=== PATIENT | male | born 1950 | race Caucasian/White ===

== ENCOUNTER → 2017-05-21 | Outpatient (CLI) | payer MEDICARE, BC ==
[2017-05-21 15:13] LABS: HCT 43.6 % (39.0-53.0); HGB 13.8 gm/dL (13.0-17.5); MCHC 31.6 g/dL (31.0-37.0); MCV 88.5 fL (80.0-100.0); Mean Platelet Volume 7.8; Platelet Count 166 k/uL (150-450); RBC 4.93 m/uL (4.30-5.90); RDW 13.6 % (11.5-15.5); WBC 6.5 k/uL (3.8-10.6)
[2017-05-21 15:32] LABS: Anion Gap 11 mmol/L; Blood Urea Nitrogen 30 mg/dL (9-20); Carbon Dioxide 29 mmol/L (22-30); Chloride 99 mmol/L (98-107); Potassium 3.9 mmol/L (3.5-5.1); Sodium 139 mmol/L (137-145)
== END | disposition home or self-care (01) ==
LOC: LABPAT 15:01
PROVIDERS: ATTEND Internal Medicine Cardiovascular Disease
DX: Z01.812 Encounter for preprocedural laboratory examination (principal); I25.10 Atherosclerotic heart disease of native coronary artery without angina pectoris
CPT/HCPCS: 36415; 80051; 82565; 84520; 85027

== ENCOUNTER 2017-05-26 06:11 | Day surgery (SDC) | payer MEDICARE, BC ==
[2017-05-22 13:16] VITALS: BMI 29.7
[2017-05-26] MEDS ORDERED: NITROGLYCERIN SL TABS 0.4 MG TAB SUBLINGUAL PRN ×2 (06:29→09:06)
[2017-05-26] MEDS ORDERED: ALPRAZolam 0.25 MG TAB PO PRN (06:29)
[2017-05-26] MEDS ORDERED: ASPIRIN 325 MG TAB PO STA (06:29)
[2017-05-26] MEDS ORDERED: SODIUM CHLORIDE 0.9% 1,000 ML in EMPTY BAG 1 BAG IV ONE (06:29)
[2017-05-26] MEDS ORDERED: ALPRAZolam 0.5 MG TAB PO PRN (06:29)
[2017-05-26] MEDS ORDERED: MIDAZOLAM 2 MG/2 ML VIAL IV ONE (07:40)
[2017-05-26] MEDS ORDERED: fentaNYL (PF) 50 MCG/ML 2 ML AMP IV ONE (07:40)
[2017-05-26] MEDS ORDERED: LIDOCAINE 2% INJ 20 MG/ML SQ ONE ×2 (07:42→08:54)
[2017-05-26] MEDS ORDERED: BIVALIRUDIN BOLUS 250 MG/50 ML IV ONE (08:09)
[2017-05-26] MEDS ORDERED: BIVALIRUDIN 250 MG in SODIUM CHLORIDE 0.9% 40 ML IV ONE (08:10)
[2017-05-26] MEDS: NITROGLYCERIN 1000MCG/10ML SYRINGE INTRACORON ONE ×2 (08:31→08:43)
[2017-05-26] MEDS ORDERED: CLOPIDOGREL 75 MG TAB PO ONE (08:54)
[2017-05-26] MEDS ORDERED: HYDROmorphone 2 MG/ML 1 ML SYRINGE IV ONE (08:54)
[2017-05-26] MEDS ORDERED: IOHEXOL 350 MG/ML 125ML BOTTLE INJ ONE (08:55)
[2017-05-26] MEDS ORDERED: RX INFO: IV CONTRAST WAS GIVEN 1 EACH MISC MISCELLANE PRN (09:06)
[2017-05-26] MEDS ORDERED: ATROPINE SULFATE 0.1 MG/ML 10ML SYRINGE IV PRN (09:06)
[2017-05-26] MEDS ORDERED: MAG HYDROX/AL HYDROX/SIMETH 30 ML CUP PO PRN (09:06)
[2017-05-26] MEDS ORDERED: ZOLPIDEM 5 MG TAB PO PRN (09:06)
--- NOTE | 2017-05-26 10:13 | CC ---
CARDIAC CATHETERIZATION REPORT INDICATION: Unstable angina. A 66-year-old gentleman with history of hypertension, dyslipidemia, who was advised to undergo cardiac catheterization for symptoms of unstable angina. PROCEDURE NOTE: After obtaining informed consent, left heart catheterization, coronary angiogram are performed via the right femoral artery using standard Chao catheters. The patient tolerated the procedure well without any obvious immediate complications. FINDINGS: 1. Hemodynamics left ventricular end-diastolic pressure is 8 to 10 mm. There is no significant gradient across the aortic valve. LEFT VENTRICULOGRAM: Left ventriculogram is not performed. ANGIOGRAPHIC DATA: 1. Left main coronary artery: Left main coronary artery is a normal-sized vessel and is free of stenosis. Divides into left anterior descending coronary artery and circumflex coronary arteries. Mid LAD shows a 80-90% focal area of stenosis that involves the diagonal branch also. 2. Circumflex coronary artery is a nondominant vessel and is free of significant stenosis. 3. Right coronary artery is a large dominant vessel that shows mild atherosclerotic plaque in its proximal and distal part. CONCLUSIONS: 80 to 90% focal area of stenosis involving the LAD. PLAN: Patient will undergo angioplasty with stent placement of LAD. MMODL / IJN: [id number] /
--- NOTE | 2017-05-26 10:40 | LTR ---
DATE OF SERVICE: 05/26/[address] Kamara: Thank you for the opportunity to participate in the care of Mr. Flip Cardoza. Please find enclosed my PTCA report for your records. I am pleased to report to you that he had an excellent angiographic result. He has really calcified arteries. He should be on dual antiplatelet therapy without interruption for at least 1 year. Risk factor modification issues were also discussed. His LDL cholesterol should be kept under 70 and I have given him 80 mg of Lipitor. Thank you for your referral. Please call for questions. Sincerely, PIA / KANWALN: [phone] /
--- NOTE | 2017-05-26 10:40 | CC ---
CARDIAC CATHETERIZATION REPORT DATE OF SERVICE: 05/26/2017. PROCEDURE: PTCA and stenting of complex calcified mid LAD lesion with a drug-eluting stent. PERFORMED BY: Dr. Josefa Cabello. SEDATION: Moderate conscious sedation time was 50 minutes with a combination of Versed, Benadryl and patient was monitored closely and oxygen saturation was also monitored. CLINICAL INFORMATION: Mr. Flip Cardoza is a 66-year-old gentleman a patient of Dr. Kamara who was seen by Dr. Colunga with symptoms strongly suggestive of angina. He has exertional chest pressure, walking up a flight of stairs. However, the stress test did not reveal any clear-cut ischemia. In view of his ongoing symptoms strongly suggestive of angina with high index of suspicion Dr. Colunga performed coronary angiography which revealed a mid LAD lesion of 70%, eccentric, heavily calcified before and at the lesion site as well. He was advised intervention that was performed in the same setting. The risks, benefits, options were explained to the patient prior to the procedure. He understood and wished to proceed. PROCEDURE NOTE: The existing 6-Israeli introducer in the right femoral artery was used to perform the procedure. I used a standard left Chao guide catheter to cannulate the left coronary artery. A BMW wire was used to cross the lesion. I pre-dilated the lesion with a 2.75 caliber 12 mm Trek balloon at 8 atmospheres. Following this, there was a flap noted. The flap was at and slightly proximal to the lesion. I then deployed instead of a 2.75, a 2.5 caliber 12 mm long Xience stent at 12 atmospheres. I noted that the flap still persisted slightly proximal to the stented segment and this was addressed with another 8 mm 2.75 caliber Xience stent that was telescoped into the previous stent. The patient had chest discomfort and precordial ST elevation. Following the 2 stents, there was an excellent angiographic result. There was no evidence of any complication. Patient tolerated procedure well without complication. He received Angiomax bolus and infusion and 600 mg of Plavix. The sheath was taken out and a Perclose device used to secure hemostasis and he was sent to the room in stable condition. Results were discussed with the patient and family. MMODL / IJN: [id number] /
[2017-05-26] MEDS ORDERED: TAMSULOSIN 0.4 MG CAP.ER.24H PO SCH (18:30)
[2017-05-26] MEDS ORDERED: LISINOPRIL-HCTZ 20-25 MG 1 EACH TAB PO SCH (18:30)
[2017-05-26] MEDS: SODIUM CHLORIDE 0.9% 1,000 ML IV SCH ×2 (18:37→20:58)
[2017-05-26] MEDS ORDERED: ATORVASTATIN 80 MG TAB PO SCH (21:00)
[2017-05-26] MEDS ORDERED: METOPROLOL TARTRATE 25 MG TAB PO SCH (21:00)
[2017-05-26 22:34] VITALS: RESP 16
[2017-05-27 04:24] VITALS: TEMP 96.8
[2017-05-27 06:11] LABS: Basophils % (A) 1 %; Eosinophils # (A) 0.3 k/uL (0-0.7); Eosinophils % (A) 5 %; HCT 42.2 % (39.0-53.0); HGB 13.5 gm/dL (13.0-17.5); Lymphocytes # (A) 1.2 k/uL (1.0-4.8); Lymphocytes % (A) 22 %; MCH 27.6 pg (25.0-35.0); MCV 86.3 fL (80.0-100.0); Mean Platelet Volume 7.3; Monocytes # (A) 0.3 k/uL (0-1.0); Monocytes % (A) 5 %; Neutrophils # (A) 3.5 k/uL (1.3-7.7); Neutrophils % (A) 66 %; Platelet Count 138 k/uL (150-450); RBC 4.89 m/uL (4.30-5.90); RDW 13.4 % (11.5-15.5); WBC 5.3 k/uL (3.8-10.6)
[2017-05-27 06:30] LABS: Anion Gap 6 mmol/L; Blood Urea Nitrogen 18 mg/dL (9-20); Calcium 9.6 mg/dL (8.4-10.2); Carbon Dioxide 34 mmol/L (22-30); Chloride 99 mmol/L (98-107); Glucose 99 mg/dL (74-99); Potassium 4.3 mmol/L (3.5-5.1); Sodium 139 mmol/L (137-145)
[2017-05-27 07:48] VITALS: PULSE 71
[2017-05-27 07:49] VITALS: BP 124/74
[2017-05-27] MEDS ORDERED: ASPIRIN 81 MG PO SCH (09:00)
[2017-05-27] MEDS ORDERED: ESCITALOPRAM 5 MG TAB PO SCH (09:00)
[2017-05-27] MEDS ORDERED: CHOLECALCIFEROL 1,000 UNIT TAB PO SCH (09:00)
[2017-05-27] MEDS ORDERED: METOPROLOL SUCCINATE (ER) 50 MG TAB.ER.24H PO SCH (09:00)
[2017-05-27] MEDS ORDERED: CLOPIDOGREL 75 MG TAB PO SCH (09:00)
[2017-05-27] MEDS ORDERED: NON-FORMULARY DRUG (Fish Oil/Dha/Epa [Fish Oil 1,200 Mg Fish Oil] 1 EACH) PO SCH (09:00)
[2017-05-27] MEDS ORDERED: MULTIVITAMINS, THERA 1 EACH TAB PO SCH (12:00)
--- NOTE | 2017-05-27 12:05 | PN ---
PROGRESS NOTE This gentleman underwent stenting of mid LAD yesterday. He sees Dr. Martinez in the office and also Dr. Kamara is his primary care physician. His EKG and labs are good. He is asymptomatic. His right groin is clean and dry with a good pulse. Vital signs are stable there is no JVD or carotid bruit. S1, S2 heard normally. Lungs are clear. Abdomen and lower extremities exam unchanged. Plan is to increase activity, discharge him and he will see Dr. Martinez this Friday. Discharge instructions regarding activity, diet, medications, and importance of dual antiplatelet therapy was discussed with the patient. He will be discharged today. MMODL / IJN: [id number] /
== END 2017-05-27 10:39 | disposition home or self-care (01) ==
LOC: CATHCVL 06:11 → 6SEL 08:50 → CATHCVL 05-27 10:39
PROVIDERS: ATTEND Internal Medicine Cardiovascular Disease
DX: I25.110 Atherosclerotic heart disease of native coronary artery with unstable angina pectoris (principal); I25.84 Coronary atherosclerosis due to calcified coronary lesion; R00.1 Bradycardia, unspecified; E78.5 Hyperlipidemia, unspecified; I10 Essential (primary) hypertension; I47.2 Ventricular tachycardia; Z82.49 Family history of ischemic heart disease and other diseases of the circulatory system; Z79.82 Long term (current) use of aspirin; Z79.899 Other long term (current) drug therapy; Z87.891 Personal history of nicotine dependence
CPT/HCPCS: 80048; 85025; 93458

== ENCOUNTER 2017-10-11 13:11 | Emergency (ER) | payer MEDICARE, BC ==
[2017-10-11 13:22] VITALS: BP 117/72; PULSE 72; RESP 18; TEMP 98.5
[2017-10-11] MEDS ORDERED: DIPH,PERTUS(ACELL)TETVAC-LF 0.5 ML VIAL IM ONE (13:31)
[2017-10-11] MEDS ORDERED: AMOXIC-POT CLAV 875-125MG 1 EACH TAB PO STA (13:31)
--- NOTE | 2017-10-11 13:35 | ED ---
Animal Bite HPI - General Chief Complaint: Animal Bite Stated Complaint: Animal Bite Time Seen by Provider: 10/11/17 13:20 Source: patient, RN notes reviewed Mode of arrival: ambulatory Limitations: no limitations - History of Present Illness Initial Comments: This is a 67-year-old male presents emergency Department chief complaint of right arm pain. Patient states that he was bit by his neighbor's friend's dog on Friday. Patient noticed some swelling in the last 24 hours and slight warmth. He's had slight increase in pain also. Patient states she's been washing the wounds with peroxide, soap water and putting Neosporin on. He states his 2 small puncture wounds. Patient is unsure when his last tetanus was. The dog was up-to-date on his vaccinations. Patient denies any paresthesias of his right arm he states it is tender with palpation over that region. Patient denies fever, chills, night sweats - Related Data Home Medications Medication Instructions Recorded Confirmed Cholecalciferol [Vitamin D3] 2,000 unit PO DAILY 05/10/15 10/11/17 Lisinopril-Hctz 20-25 mg 1 tab PO PC-SUPPER 05/10/15 10/11/17 [Zestoretic 20-25] Multivitamins, Thera [Multivitamin 1 tab PO DAILY 05/10/15 10/11/17 (formulary)] Tamsulosin [Flomax] 0.4 mg PO PC-SUPPER 05/10/15 10/11/17 Escitalopram [Lexapro] 5 mg PO DAILY 05/22/17 10/11/17 Famotidine 40 mg PO DAILY 05/22/17 10/11/17 Fish Oil/Dha/Epa [Fish Oil 1,200 1 each PO DAILY 05/22/17 10/11/17 mg Fish Oil] Metoprolol Succinate (ER) [Toprol 50 mg PO DAILY 05/22/17 10/11/17 XL] Previous Rx's Medication Instructions Recorded Aspirin 81 mg PO DAILY #30 chew 05/27/17 Atorvastatin [Lipitor] 80 mg PO HS #30 tab 05/27/17 Clopidogrel [Plavix] 75 mg PO DAILY #30 tab 05/27/17 Nitroglycerin Sl Tabs [Nitrostat] 0.4 mg SUBLINGUAL Q5M PRN #25 tab 05/27/17 Amoxicillin/Potassium Clav 1 tab PO Q12HR #20 tab 10/11/17 [Augmentin 875-125 Tablet] Allergies Allergy/AdvReac Type Severity Reaction Status Date / Time No Known Allergies Allergy Verified 10/11/17 13:22 Review of Systems ROS Statement: Those systems with pertinent positive or pertinent negative responses have been documented in the HPI. ROS Other: All systems not noted in ROS Statement are negative. Past Medical History Past Medical History: GERD/Reflux, Hyperlipidemia, Hypertension, Osteoarthritis (OA), Prostate Disorder Additional Past Medical History / Comment(s): hx migraine, heart murmer, hx ulcer, torn rotator cuff left shoulder, hx of cocaine and mj use per old records History of Any Multi-Drug Resistant Organisms: None Reported Past Surgical History: Heart Catheterization With Stent, Hernia Repair, Joint Replacement Additional Past Surgical History / Comment(s): reverse left shoulder replacement , left shoulder surgery (total 3), arthroscopy left knee, rt ankle ORIF, TOTAL LT KNEE REPLACEMENT Past Anesthesia/Blood Transfusion Reactions: Motion Sickness Additional Past Anesthesia/Blood Transfusion Reaction / Comment(s): CLAUSTERPHOBIC Past Psychological History: Anxiety, Depression Smoking Status: Former smoker Past Alcohol Use History: None Reported Past Drug Use History: None Reported - Past Family History Mother Family Medical History: Dementia Father Family Medical History: Hyperlipidemia, Myocardial Infarction ([place]) General Exam Limitations: no limitations General appearance: alert, in no apparent distress Head exam: Present: atraumatic, normocephalic, normal inspection Respiratory exam: Present: normal lung sounds bilaterally. Absent: respiratory distress, wheezes, rales, rhonchi, stridor Cardiovascular Exam: Present: regular rate, normal rhythm, normal heart sounds. Absent: systolic murmur, diastolic murmur, rubs, gallop, clicks Extremities exam: Present: other (Right forearm there are 2 healing puncture wounds noted there is mild erythema and mild warmth to the right forearm there is moderate tenderness to palpation in noted epitrochlear nodes there is no pain in the patient's right bicep region or right axilla region radial pulses equal bilaterally patient has full strength and full range of motion) Course Vital Signs 10/11/17 13:19 Temperature 98.5 F Pulse Rate 72 Respiratory 18 Rate Blood Pressure 117/72 O2 Sat by Pulse 97 Oximetry Medical Decision Making - Medical Decision Making 67-year-old male presented for dog bite. Patient's tetanus was updated, he was started on Augmentin this time. He is advised to recheck on Friday with his primary care physician and he is to return for any worsening symptoms. Disposition Clinical Impression: Dog bite of right arm, Cellulitis of right arm Disposition: HOME SELF-CARE Condition: Stable Instructions: Animal Bite (ED) Additional Instructions: Please return to the Emergency Department if symptoms worsen or any other concerns. Prescriptions: Amoxicillin/Potassium Clav [Augmentin 875-125 Tablet] 1 tab PO Q12HR #20 tab Is patient prescribed a controlled substance at d/c from ED?: No Referrals: Paulino Kamara MD [Primary Care Provider] - 1-2 days Time of Disposition: 13:35
== END 2017-10-11 14:10 | disposition home or self-care (01) ==
LOC: EC 13:11
DX: S51.851A Open bite of right forearm, initial encounter (principal); L03.113 Cellulitis of right upper limb; K21.9 Gastro-esophageal reflux disease without esophagitis; I10 Essential (primary) hypertension; N42.9 Disorder of prostate, unspecified; F32.9 Major depressive disorder, single episode, unspecified; F41.9 Anxiety disorder, unspecified; Z23 Encounter for immunization; Z87.891 Personal history of nicotine dependence; Z79.899 Other long term (current) drug therapy; Z95.1 Presence of aortocoronary bypass graft; Z96.652 Presence of left artificial knee joint; Z96.612 Presence of left artificial shoulder joint; W54.0XXA Bitten by dog, initial encounter
CPT/HCPCS: 90471; 90715; 99283

== ENCOUNTER 2018-02-20 12:51 | Emergency (ER) | payer MEDICARE, BC ==
[2018-02-20 13:01] VITALS: TEMP 97.9
--- NOTE | 2018-02-20 13:26 | ED ---
General Adult HPI - General Chief complaint: Wound/Laceration Stated complaint: head/facial injury Time Seen by Provider: 02/20/18 13:13 Source: patient, RN notes reviewed Limitations: no limitations - History of Present Illness Initial comments: Patient is a 67-year-old male who presents the emergency department with complaints of right cheek bruising and laceration after a trailer hitch hit his face about an hour and half ago. He reports he is up-to-date on his tetanus vaccination. He takes Plavix and aspirin. Admits to headache. He reports that he has chronic left-sided neck pain, but no new neck pain and no midline neck pain. Patient denies any recent fever, chills, shortness of breath, chest pain, back pain, abdominal pain, nausea or vomiting, visual changes, or any other complaints. - Related Data Home Medications Medication Instructions Recorded Confirmed Cholecalciferol [Vitamin D3] 2,000 unit PO DAILY 05/10/15 02/20/18 Lisinopril-Hctz 20-25 mg 1 tab PO PC-SUPPER 05/10/15 02/20/18 [Zestoretic 20-25] Multivitamins, Thera [Multivitamin 1 tab PO DAILY 05/10/15 02/20/18 (formulary)] Tamsulosin [Flomax] 0.4 mg PO PC-SUPPER 05/10/15 02/20/18 Escitalopram [Lexapro] 5 mg PO DAILY 05/22/17 02/20/18 Famotidine 40 mg PO DAILY 05/22/17 02/20/18 Fish Oil/Dha/Epa [Fish Oil 1,200 1 each PO DAILY 05/22/17 02/20/18 mg Fish Oil] Metoprolol Succinate (ER) [Toprol 50 mg PO DAILY 05/22/17 02/20/18 XL] Naproxen Sodium [Aleve] 440 mg PO DAILY 02/20/18 02/20/18 Previous Rx's Medication Instructions Recorded Aspirin 81 mg PO DAILY #30 chew 05/27/17 Atorvastatin [Lipitor] 80 mg PO HS #30 tab 05/27/17 Clopidogrel [Plavix] 75 mg PO DAILY #30 tab 05/27/17 Nitroglycerin Sl Tabs [Nitrostat] 0.4 mg SUBLINGUAL Q5M PRN #25 tab 05/27/17 Amoxicillin/Potassium Clav 1 each PO Q12HR #20 tab 02/20/18 [Augmentin 875-125 Tablet] Hydrocodone/Acetaminophen [[place] 1 each PO Q6HR PRN #12 tab 02/20/18 5-325] Allergies Allergy/AdvReac Type Severity Reaction Status Date / Time No Known Allergies Allergy Verified 02/20/18 15:03 Review of Systems ROS Statement: Those systems with pertinent positive or pertinent negative responses have been documented in the HPI. ROS Other: All systems not noted in ROS Statement are negative. Past Medical History Past Medical History: GERD/Reflux, Hyperlipidemia, Hypertension, Osteoarthritis (OA), Prostate Disorder Additional Past Medical History / Comment(s): hx migraine, heart murmer, hx ulcer, torn rotator cuff left shoulder, hx of cocaine and mj use per old records History of Any Multi-Drug Resistant Organisms: None Reported Past Surgical History: Heart Catheterization With Stent, Hernia Repair, Joint Replacement Additional Past Surgical History / Comment(s): reverse left shoulder replacement , left shoulder surgery (total 3), arthroscopy left knee, rt ankle ORIF, TOTAL LT KNEE REPLACEMENT Past Anesthesia/Blood Transfusion Reactions: Motion Sickness Additional Past Anesthesia/Blood Transfusion Reaction / Comment(s): CLAUSTERPHOBIC Past Psychological History: Anxiety, Depression Smoking Status: Former smoker Past Alcohol Use History: None Reported Past Drug Use History: None Reported - Past Family History Mother Family Medical History: Dementia Father Family Medical History: Hyperlipidemia, Myocardial Infarction ([place]) General Exam Limitations: no limitations General appearance: alert, in no apparent distress Head exam: Present: other (2 cm laceration to right cheek with bruising and edema.) Eye exam: Present: PERRL, EOMI Pupils: Present: normal accommodation ENT exam: Present: normal exam, normal oropharynx, TM's normal bilaterally, normal external ear exam, other (No blood seen during internal nasal exam.) Neck exam: Present: normal inspection, full ROM, other (No tenderness to palpation.) Respiratory exam: Present: normal lung sounds bilaterally Cardiovascular Exam: Present: regular rate, normal rhythm Extremities exam: Present: other (Moving all extremities.) Back exam: Present: other (No tenderness to palpation.) Neurological exam: Present: alert, oriented X3, CN II-XII intact Psychiatric exam: Present: normal affect, normal mood Course Vital Signs 02/20/18 02/20/18 02/20/18 12:58 14:58 17:20 Temperature 97.9 F Pulse Rate 72 64 65 Respiratory 20 16 18 Rate Blood Pressure 151/84 173/78 161/76 O2 Sat by Pulse 99 99 98 Oximetry Medical Decision Making - Medical Decision Making Extraocular movements intact. Ocular pressure was WNL at 19 right and 20 left. Fluorescent stain eye exam negative for abrasion to left eye. Left eye (nasal side) was also negative for abrasion; temporal side with subconjunctival hemorrhage. Visual acuity of right eye and left eye separately was 20/40; together was 20/ 30. He reports that he is supposed to wear glasses but does not have them with him. Brain CT revealed no acute intracranial process. Right tripod fracture with a orbital floor fracture. Face CT revealed complex right orbital fracture with mass affect upon the lateral rectus muscle and foci of extracoronal air, posttraumatic. Angulated and comminuted fractures of the anterior and lateral green of the right maxillary sinus with internal hemorrhage. Angulated non-comminuted fracture of the right zygomatic arch and of the nasal bones. Hematoma, subcutaneous emphysema, and extensive soft tissue swelling in the right supraorbital, periorbital, and infraorbital soft tissues. Globes maintain a normal rounded morphology and lenses appear in place. Wound was cleaned and Steri-Strips were placed. EKG was normal. Case discussed in detail with attending physician Dr. Campbell. - Lab Data Result diagrams: 02/20/18 13:49 Lab Results 02/20/18 02/20/18 Range/Units 13:49 13:49 Plt Count 134 L (150-450) k/uL PT 10.9 (9.0-12.0) sec INR 1.1 (<1.2) APTT 23.3 (22.0-30.0) sec Disposition Clinical Impression: Facial bone fracture Disposition: HOME SELF-CARE Condition: Good Instructions: Facial Fracture (ED) Additional Instructions: Follow up with PCP in 2 days. Follow up with plastic surgery in 2 days. Stop taking Plavix for now and follow up with your skate boarder in 2 days to decide when to restart Plavix. Do not blow your nose. Do not drive while taking [place]. Return to emergency department if symptoms worsen or any other concerns. Prescriptions: Amoxicillin/Potassium Clav [Augmentin 875-125 Tablet] 1 each PO Q12HR #20 tab Hydrocodone/Acetaminophen [[place] 5-325] 1 each PO Q6HR PRN #12 tab PRN Reason: Pain Is patient prescribed a controlled substance at d/c from ED?: Yes When asked, does pt state using other controlled substances?: No If prescribed controlled substance>3 days was MAPS reviewed?: Prescribed <3 Days If opioid is for acute pain is fill amount 7 days or less?: Yes If Rx opioid, was Start Talking consent form obtained?: Yes Referrals: Paulino Kamara MD [Primary Care Provider] - 1-2 days Kong South MD [STAFF PHYSICIAN] - 1-2 days
[2018-02-20 14:01] LABS: Mean Platelet Volume 6.9; Platelet Count 134 k/uL (150-450)
[2018-02-20 14:14] LABS: INR 1.1 (<1.2); Partial Thromboplastin Time 23.3 sec (22.0-30.0); Prothrombin Time 10.9 sec (9.0-12.0)
--- NOTE | 2018-02-20 14:25 | CT ---
EXAMINATION TYPE: CT brain wo con DATE OF EXAM: 02/20/2018 COMPARISON: INDICATION: Right orbital injury with swelling and laceration. DLP: 1439.6 mGycm, Automated exposure control for dose reduction was used. CONTRAST: None CT of the brain is performed utilizing 3 mm thick sections through the posterior fossa and 3 mm thick sections through the remaining calvarium. Study is performed within 24 hours of arrival to the hosp ital. No abnormal hyperdensity is present to suggest an acute intracranial hemorrhage. No mass lesion is evident. No acute infarcts are evident. Ventricles and sulci are appropriate for the patient age. There is opacification of the right maxillary sinus. Hemorrhage is likely present. There is soft tissue swelling over the right orbit and right cheek. There are 2 fractures of the zygo matic arch. Zygomatic arch is depressed. There is a fracture of the posterior lateral right maxillary wall. This fracture of the anterior lateral maxillary wall. Greater wings of sphenoid is fractured. Findings are compatible with a tripod fracture. Orbital floor fracture is also likely present lateral ly. IMPRESSIONS: 1. No acute intracranial process. 2. Right tripod fracture with a orbital floor fracture.
--- NOTE | 2018-02-20 14:32 | CT ---
EXAMINATION TYPE: CT facial bones wo con DATE OF EXAM: 02/20/2018 HISTORY: Right orbital injury with swelling and laceration. CT DLP: 1439.6 mGycm. Automated Exposure Control for Dose Reduction was Utilized. TECHNIQUE: CT scan of the head is performed without contrast. COMPARISON: None. FINDINGS: There is a complex fracture of the right orbit involving the lateral wall with angulation a nd 7 mm of foreshortening. The distal fracture fragment extends into the extraconal space with focus of adjacent air. There is mass effect upon the lateral rectus muscle. Foci of air track within the ex traconal space in the right orbit. Additionally there is an inferior orbital comminuted fracture seen anterolaterally without herniation of extraocular muscles. There is also a lateral right maxillary s inus and anterior right maxillary sinus fracture that are both angulated and comminuted. Angulated no ncomminuted right zygomatic arch fracture is also seen. There is complete opacification of the right maxillary sinus due to hemorrhage with high density seen on soft tissue windows. Mild mucosal thickening is seen along the lateral wall the left maxillary sinus. Nondisplaced fractur es of the nasal bones are seen. Maxillary spine and nasal septum appear intact. Selene bullosa is inc identally noted bilaterally. Minimal ethmoidal mucosal thickening is present. Sphenoid and frontal si nuses as well as the mastoid air cells are well aerated. Mild atherosclerosis is seen of the intracra nial vasculature. There is a large degree of right supraorbital, infraorbital, and periorbital soft tissue swelling ext ending over the right maxilla with subcutaneous foci of emphysema also seen and high density periorbi jluis ill-defined hematoma. Globes are rounded and lenses appear in place and symmetric in the anterior chambers. Degenerative changes of the upper cervical spine are noted. IMPRESSION: 1. Complex right orbital fracture with mass effect upon the lateral rectus muscle and foci of or extr aconal air, posttraumatic. 2. Angulated and comminuted fractures of the anterior and lateral green of the right maxillary sinus with internal complete opacification and areas of high density from internal hemorrhage. 3. Angulated noncomminuted fracture of the right zygomatic arch and of the nasal bones. 4. Hematoma, subcutaneous emphysema, and extensive soft tissue swelling in the right supraorbital, pe riorbital, and infraorbital soft tissues. Globes maintain a normal rounded morphology and lenses appe ar in place.
[2018-02-20] MEDS ORDERED: MORPHINE SULFATE 4 MG/ML SYRINGE IV STA (14:46)
[2018-02-20] MEDS ORDERED: PROPARACAINE 0.5% OPHTH DROPS 15 ML BTL BOTH EYES STA (14:59)
[2018-02-20 17:21] VITALS: BP 161/76; PULSE 65; RESP 18
== END 2018-02-20 18:20 | disposition home or self-care (01) ==
LOC: EC 12:51
DX: S02.31XA Fracture of orbital floor, right side, initial encounter for closed fracture (principal); S02.40CA Maxillary fracture, right side, initial encounter for closed fracture; S02.40EA Zygomatic fracture, right side, initial encounter for closed fracture; S02.2XXA Fracture of nasal bones, initial encounter for closed fracture; T79.7XXA Traumatic subcutaneous emphysema, initial encounter; I10 Essential (primary) hypertension; K21.9 Gastro-esophageal reflux disease without esophagitis; M19.90 Unspecified osteoarthritis, unspecified site; N42.9 Disorder of prostate, unspecified; F32.9 Major depressive disorder, single episode, unspecified; F41.9 Anxiety disorder, unspecified; Z87.891 Personal history of nicotine dependence; Z79.1 Long term (current) use of non-steroidal anti-inflammatories (NSAID); Z79.899 Other long term (current) drug therapy; Z87.19 Personal history of other diseases of the digestive system; Z86.79 Personal history of other diseases of the circulatory system; Z95.818 Presence of other cardiac implants and grafts; Z96.612 Presence of left artificial shoulder joint; Z96.652 Presence of left artificial knee joint; W22.8XXA Striking against or struck by other objects, initial encounter; Y92.009 Unspecified place in unspecified non-institutional (private) residence as the place of occurrence of the external cause
CPT/HCPCS: 36415; 93005; 85049; 85610; 85730; 70486; 70450; 99284; 96374; J2270

== ENCOUNTER → 2018-06-30 | Outpatient (CLI) | payer MEDICARE, BC ==
--- NOTE | 2018-06-30 08:31 | US ---
EXAMINATION TYPE: US duplex aorta DATE OF EXAM: 06/30/2018 COMPARISON: NONE CLINICAL HISTORY: Z13.6 screening for AAA. EXAM MEASUREMENTS: Abdominal Aorta: Proximal: 2.7 x 2.7 cm Mid: 2.0 x 2.3 cm Distal: 1.9 x 2.0 cm Bifurcation: rt, 1.3 x 1.0 cm lt, 1.3 x 1.2 cm Calcified aorta. IMPRESSION: 1. Atherosclerotic changes with aortic ectasia but no diagnostic evidence of aneurysm (3 cm a greater ).
== END | disposition home or self-care (01) ==
LOC: RADUSWWP 07:58
PROVIDERS: ATTEND Family Medicine
DX: I77.811 Abdominal aortic ectasia (principal)
CPT/HCPCS: 93979

== ENCOUNTER → 2018-07-29 | Day surgery (SDC) | payer MEDICARE, BC ==
[2018-07-27 12:11] VITALS: BMI 28.3
[~2018-07-29] MED LIST: LACTATED RINGERS 1,000 ML IV SCH; LIDOCAINE 1% 20 ML VIAL (10MG/ML) FOR IV START INTRADERMA ONE; LIDOCAINE 1% INJ 10MG/ML (20 ML MDV) ONE; PROPOFOL 10 MG/ML 20 ML VIAL IV ONE
[2018-07-29 12:11] VITALS: RESP 16; TEMP 97.8
--- NOTE | 2018-07-29 13:07 | P.PCN ---
Date of Procedure: 07/29/18 Procedure(s) Performed: Brief history: Patient is a pleasant 68-year-old white male, scheduled for an elective upper endoscopy as well as colonoscopy as a part of evaluation of GERD and prior history of colon polyps. He remains on Pepcid 40 mg twice daily for reflux symptoms. Procedure performed: Esophagogastroduodenoscopy with biopsy Colonoscopy Preoperative diagnosis: GERD History of colon polyps Anesthesia: MAC Procedure: After informed consent was obtained from the patient was brought into the endoscopy unit and IV sedation was administered by anesthesia under continuous monitoring. Initially upper endoscopy was done. The Olympus GF 160 video endoscope was inserted inserted into the mouth and esophagus intubated without any difficulty and was gradually advanced into the stomach and duodenum and carefully examined. The bulb and second part of the duodenum appeared normal. The scope was then withdrawn into the stomach adequately insufflated with air and upon careful examination the antrum and body had diffuse gastritis and biopsies were done from these areas. The, cardia and fundus appeared normal. The scope was then withdrawn into the esophagus. The GE junction was located at 41 cm to the incisors. It appeared regular with no erythema erosions or ulcerations. Rest of the esophagus appeared normal. Patient tolerated the procedure well. At this time the patient continued to remain sedation. Initial digital rectal examination was normal. Olympus CF 160 video colonoscope was then inserted into the rectum and gradually advanced to the cecum without any difficulty. Careful examination was performed as the scope was gradually being withdrawn. The prep was excellent. The cecum, ascending colon, transverse colon, descending colon, sigmoid colon and rectum appeared normal. Retroflexion was performed in the rectum and no lesions were noted. Scattered sigmoidal diverticulosis. Patient tolerated the procedure well. Impression: 1. Upper endoscopy revealed diffuse gastritis involving the antrum and body the stomach but no evidence of esophagitis 2. Colonoscopy showed scattered sigmoid diverticulosis but no evidence of colorectal neoplasia. Recommendations: Findings of this examination were discussed with the patient as well as his family. He was advised to follow with the biopsy results. He can have a repeat screening colonoscopy in 5 years because of the prior history of colon polyps
[2018-07-29 13:38] VITALS: BP 138/83; PULSE 77
== END | disposition home or self-care (01) ==
LOC: ORWHC2ENDO 11:11
PROVIDERS: ATTEND Internal Medicine Gastroenterology
DX: K21.9 Gastro-esophageal reflux disease without esophagitis (principal); Z86.010 Personal history of colon polyps; K57.30 Diverticulosis of large intestine without perforation or abscess without bleeding; K29.70 Gastritis, unspecified, without bleeding; Z79.1 Long term (current) use of non-steroidal anti-inflammatories (NSAID); Z79.899 Other long term (current) drug therapy; I10 Essential (primary) hypertension; K29.50 Unspecified chronic gastritis without bleeding; K31.9 Disease of stomach and duodenum, unspecified
CPT/HCPCS: 88305; 45378; 43239; J2001; J2704

== ENCOUNTER → 2018-12-25 | Outpatient (CLI) | payer MEDICARE ==
[2018-12-25 15:09] LABS: HCT 41.2 % (39.0-53.0); HGB 14.1 gm/dL (13.0-17.5); MCH 28.6 pg (25.0-35.0); MCHC 34.3 g/dL (31.0-37.0); MCV 83.4 fL (80.0-100.0); Mean Platelet Volume 6.2; Platelet Count 154 k/uL (150-450); RBC 4.94 m/uL (4.30-5.90); RDW 13.4 % (11.5-15.5)
[2018-12-25 15:18] LABS: African American GFR (CKD) >90 (>60 ml/min/1.73 sqM); Anion Gap 7 mmol/L; Blood Urea Nitrogen 25 mg/dL (9-20); Carbon Dioxide 30 mmol/L (22-30); Chloride 102 mmol/L (98-107); Glucose 83 mg/dL (74-99); Potassium 4.2 mmol/L (3.5-5.1); Sodium 139 mmol/L (137-145)
== END | disposition home or self-care (01) ==
LOC: LABPAT 14:26
PROVIDERS: ATTEND Internal Medicine Cardiovascular Disease
DX: Z01.812 Encounter for preprocedural laboratory examination (principal); R07.9 Chest pain, unspecified; I25.10 Atherosclerotic heart disease of native coronary artery without angina pectoris
CPT/HCPCS: 80051; 82565; 82947; 84520; 85027

== ENCOUNTER 2019-01-07 06:29 | Day surgery (SDC) | payer MEDICARE ==
[2019-01-04 13:17] VITALS: BMI 29.0
[~2019-01-07 06:29] MED LIST changes: +ALPRAZolam 0.25 MG TAB PO PRN; +ALPRAZolam 0.5 MG TAB PO PRN; +ASPIRIN 325 MG TAB PO STA; +ATORVASTATIN 80 MG TAB PO STA; -LACTATED RINGERS 1,000 ML IV SCH; -LIDOCAINE 1% 20 ML VIAL (10MG/ML) FOR IV START INTRADERMA ONE; -LIDOCAINE 1% INJ 10MG/ML (20 ML MDV) ONE; +NITROGLYCERIN SL TABS 0.4 MG TAB SUBLINGUAL PRN; -PROPOFOL 10 MG/ML 20 ML VIAL IV ONE; +SODIUM CHLORIDE 0.9% 1,000 ML in EMPTY BAG 1 BAG IV ONE
[2019-01-07 07:08] VITALS: RESP 16; TEMP 97.8
[2019-01-07] MEDS ORDERED: LIDOCAINE 1% INJ 10MG/ML (20 ML MDV) ONE (07:24)
[2019-01-07] MEDS ORDERED: fentaNYL (PF) 50 MCG/ML 2 ML AMP ONE (07:24)
[2019-01-07] MEDS ORDERED: IV FLUID CONTINUATION 1,000 ML IV ONE (07:36)
[2019-01-07] MEDS: fentaNYL (PF) 50 MCG/ML 2 ML AMP IV ONE ×2 (07:49→07:57)
[2019-01-07] MEDS: MIDAZOLAM PF (FBP) 2 MG/2 ML VIAL IV ONE ×2 (07:49→07:55)
[2019-01-07] MEDS ORDERED: LIDOCAINE 1% INJ 10MG/ML (20 ML MDV) SQ ONE (07:51)
[2019-01-07] MEDS ORDERED: IOPAMIDOL-370 125ML BTL INJ ONE (08:04)
[2019-01-07] MEDS ORDERED: RX INFO: IV CONTRAST WAS GIVEN 1 EACH MISC MISCELLANE PRN (08:18)
[2019-01-07] MEDS ORDERED: SODIUM CHLORIDE 0.9% 1,000 ML IV SCH (08:30)
--- NOTE | 2019-01-07 08:50 | CC ---
CARDIAC CATHETERIZATION REPORT INDICATION: Exertional chest tightness in a patient with known CAD, status post prior angioplasty of LAD. PROCEDURE NOTE: After obtaining informed consent, left heart catheterization and coronary angiogram are performed via the right femoral artery using standard Chao catheters. Patient tolerated the procedure well without any obvious immediate complications. A femoral angiogram was performed and Angio-Seal was deployed for hemostasis. Patient received moderate conscious sedation and total sedation time was 14 minutes. FINDINGS: 1. HEMODYNAMICS: Left ventricular end-diastolic pressure is 8 mm. There is no significant gradient across the aortic valve. 2. LEFT VENTRICULOGRAM: Left ventriculogram is not performed. 3. ANGIOGRAPHIC DATA: Left Main Coronary Artery: Left main coronary artery is a normal-sized vessel and is free of stenosis. Divides into left anterior descending coronary artery and circumflex coronary artery. Circumflex coronary artery is a nondominant vessel that gives off a large caliber OM branch and continues as a small caliber AV groove circumflex that shows diffuse disease distally. This remains unchanged compared to a cardiac catheterization done in 2018. The proximal LAD was previously stented. The stent appears patent. The ostial portion of the diagonal branch shows stenosis and it is right at the distal end of the stent. This was noted on a prior cardiac cath. Right coronary artery is a large dominant vessel that shows mild diffuse disease in its midportion without any focal significant stenotic lesion. CONCLUSIONS: Patent stent within the proximal left anterior descending artery. Mild nonobstructive coronary artery disease involving the right coronary artery. PLAN: I reviewed angiographic data with the patient and told him that his management is going to be with continued medical therapy. The patient will follow up with Dr. Martinez in a week's time. MMODL / IJN: [id number] /
--- NOTE | 2019-01-07 08:50 | LTR ---
January 07, 2019 Re: Flip Cardoza Dear Paulino: I performed cardiac catheterization on Flip Cardoza. A detailed catheterization note is enclosed for your records. In brief, his angiogram revealed a patent stent within the LAD and he does not require any further catheter based revascularization at this time. Thank you for giving me the privilege to participate in the care of this pleasant gentleman. Sincerely, MD PIA Cerda / ARUNA: [id number] /
[2019-01-07 13:23] VITALS: BP 134/67; PULSE 65
== END 2019-01-07 13:23 | disposition home or self-care (01) ==
LOC: CATHCVL 06:29
PROVIDERS: ATTEND Internal Medicine Cardiovascular Disease
DX: I25.110 Atherosclerotic heart disease of native coronary artery with unstable angina pectoris (principal); I49.5 Sick sinus syndrome; I47.1 Supraventricular tachycardia; I10 Essential (primary) hypertension; E78.5 Hyperlipidemia, unspecified; Z82.49 Family history of ischemic heart disease and other diseases of the circulatory system; Z72.0 Tobacco use; Z79.82 Long term (current) use of aspirin; Z79.899 Other long term (current) drug therapy; Z95.5 Presence of coronary angioplasty implant and graft
CPT/HCPCS: 93458; C1760; C1894; C1769; J2001; J3010; Q9967; J2250

== ENCOUNTER → 2019-05-28 | Outpatient (CLI) | payer MEDICARE ==
--- NOTE | 2019-05-28 09:41 | FL ---
EXAMINATION TYPE: FL barium swallow DATE OF EXAM: 05/28/2019 CLINICAL HISTORY: Difficulty swallowing, chest pain, and gastroesophageal reflux TECHNIQUE: A double contrast esophagram is performed utilizing air and barium. A total of 1.11 edilberto isamar of fluoroscopic time was utilized during procedure. 41 fluoroscopic images were saved during the examination. COMPARISON: None FINDINGS: The esophagus shows normal emptying into the stomach. There is abnormal motility with few t ertiary contractions however there are also esophageal spasms some of which have a nutcracker appeara nce. There is a small sliding-type hiatal hernia not seen on the upright images but present on the s upine images. No evidence of stricture noted. No significant gastroesophageal reflux was seen during real time performance of this study. IMPRESSION: 1. Small sliding-type hiatal hernia. 2. 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
== END | disposition home or self-care (01) ==
LOC: RADUSWWP 08:32
PROVIDERS: ATTEND Family Medicine
DX: K44.9 Diaphragmatic hernia without obstruction or gangrene (principal); K22.4 Dyskinesia of esophagus
CPT/HCPCS: 74220

== ENCOUNTER 2019-11-27 07:24 | Inpatient (IN) | payer MEDICARE ==
[2019-11-27] MEDS ORDERED: ASPIRIN 81 MG PO STA (07:27)
[2019-11-27] MEDS ORDERED: DILTIAZEM DRIP BOLUS FROM BAG 1 MG SOLN IV ONE (07:33)
[2019-11-27] MEDS ORDERED: SODIUM CHLORIDE 0.9% 500 ML 500 ML IV STA (07:33)
--- NOTE | 2019-11-27 07:38 | ED ---
Chest Pain HPI - General Stated Complaint: chest pain Time Seen by Provider: 11/27/19 07:27 Source: patient, RN notes reviewed Mode of arrival: wheelchair Limitations: no limitations - History of Present Illness Initial Comments: This is a 69-year-old male with a history of heart disease and stents 2 who states he had the onset about 25 minutes prior to arrival of midsternal chest pain 10/10 severity he describes it as sharp dull and achy but did feel nauseated with it he came in by private vehicle. He took 81 mg of aspirin. He took 2 nitroglycerin. He states the pain is about 8/10 severity. He did have a recent cardiac cath this past June which did show patency of his stents. He does have some exertional dyspnea at this time denies any overt palpitations fevers chills or other symptoms he does feel somewhat sweaty MD Complaint: chest pain - Related Data Home Medications Medication Instructions Recorded Confirmed Cholecalciferol [Vitamin D3 (25 2,000 unit PO DAILY 05/10/15 01/07/19 Mcg = 1000 Iu)] Multivitamins, Thera [Multivitamin 1 tab PO DAILY 05/10/15 01/07/19 (formulary)] Tamsulosin [Flomax] 0.4 mg PO HS 05/10/15 01/07/19 Famotidine 40 mg PO DAILY 05/22/17 01/07/19 Fish Oil/Dha/Epa [Fish Oil 1,200 1 each PO DAILY 05/22/17 01/07/19 mg Fish Oil] Naproxen Sodium [Aleve] 440 mg PO DAILY 02/20/18 01/07/19 Escitalopram [Lexapro] 10 mg PO DAILY 07/27/18 01/07/19 lisinopriL [Zestril] 20 mg PO HS 07/27/18 01/07/19 Metoprolol Tartrate [Lopressor] 25 mg PO DAILY 01/04/19 01/07/19 Previous Rx's Medication Instructions Recorded Aspirin 81 mg PO DAILY #30 chew 05/27/17 Atorvastatin [Lipitor] 80 mg PO HS #30 tab 05/27/17 Nitroglycerin Sl Tabs [Nitrostat] 0.4 mg SUBLINGUAL Q5M PRN #25 tab 05/27/17 Allergies Allergy/AdvReac Type Severity Reaction Status Date / Time No Known Allergies Allergy Verified 11/27/19 07:30 Review of Systems ROS Statement: Those systems with pertinent positive or pertinent negative responses have been documented in the HPI. ROS Other: All systems not noted in ROS Statement are negative. 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 History of Any Multi-Drug Resistant Organisms: None Reported Past Surgical History: Heart Catheterization With Stent, Hernia Repair, Joint Replacement, Orthopedic Surgery Additional Past Surgical History / Comment(s): heart stents x2, reverse left shoulder replacement, left shoulder surgery (total 3), arthroscopy left knee, rt ankle ORIF, 05-22-15 TOTAL LT KNEE REPLACEMENT, 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 IN FACE-CHEEKS & EYES (JAN 2018) Past Anesthesia/Blood Transfusion Reactions: No Reported Reaction Additional Past Anesthesia/Blood Transfusion Reaction / Comment(s): CLAUSTERPHOBIC Date of Last Stent Placement:: 05/2017 Past Psychological History: No Psychological Hx Reported, Anxiety, Depression Smoking Status: Never smoker Past Alcohol Use History: None Reported Past Drug Use History: None Reported - Past Family History Mother Family Medical History: Dementia Father Family Medical History: Hyperlipidemia, Myocardial Infarction ([place]) General Exam - General Exam Comments Initial Comments: This is a well-developed well-nourished awake alert oriented 3 male Limitations: no limitations General appearance: alert, anxious, in distress Head exam: Present: atraumatic, normocephalic, normal inspection Eye exam: Present: normal appearance, PERRL, EOMI. Absent: scleral icterus, conjunctival injection, periorbital swelling ENT exam: Present: normal exam, mucous membranes moist Neck exam: Present: normal inspection, full ROM, other (No stridor JVD or bruits). Absent: tenderness, meningismus, lymphadenopathy Respiratory exam: Present: normal lung sounds bilaterally. Absent: respiratory distress, wheezes, rales, rhonchi, stridor Cardiovascular Exam: Present: tachycardia, irregular rhythm. Absent: systolic murmur, diastolic murmur, rubs, gallop, clicks GI/Abdominal exam: Present: soft, normal bowel sounds. Absent: distended, tenderness, guarding, rebound, rigid Extremities exam: Present: normal inspection, full ROM, normal capillary refill. Absent: tenderness, pedal edema, joint swelling, calf tenderness Back exam: Present: normal inspection Neurological exam: Present: alert, oriented X3, CN II-XII intact Psychiatric exam: Present: normal affect, normal mood Skin exam: Present: warm, intact, normal color, diaphoretic. Absent: rash Course Vital Signs 11/27/19 07:30 Temperature 98.1 F Pulse Rate 151 H Respiratory 20 Rate Blood Pressure 98/73 O2 Sat by Pulse 96 Oximetry - Reevaluation(s) Reevaluation #1: 11/27/19 07:52 Patient's blood pressure has improved his heart rates trending down chest pain is improved he states he still has some really improved Reevaluation #2: 11/27/19 08:51 The patient slowly is improving. He does feel better patient will be admitted I did discuss this with the patient family Chest Pain MDM - MDM Review the imaging shows no evidence of acute findings heart upper limits normal. Patient is improving though still in A. fib. He will be admitted case is discussed with patient family and with Dr. Lorenzo. Patient currently is pain-free Critical Care Time Critical Care Time: Yes Total Critical Care Time: 37 Critical Care Time: 37 minutes of critical care time which includes initial presentation with history physical labs x-rays multiple reevaluation the patient review of old charting discussed with the patient family discussed with Dr. Lorenzo admitting orders and documentation of the above Disposition Clinical Impression: Unstable angina pectoris, Chest pain, Rapid atrial fibrillation Disposition: ADMITTED IP TO THIS HOSP Condition: Fair Referrals: Paulino Kamara MD [Primary Care Provider] - 1-2 days
[2019-11-27] MEDS ORDERED: HYDROmorphone 1 MG/ML 1 ML SYRINGE IVP STA (07:39)
[2019-11-27] MEDS: DILTIAZEM 125 MG in SODIUM CHLORIDE 0.9% 100 ML IV SCH ×2 (07:43→21:32)
[2019-11-27 07:52] LABS: Basophils % (A) 1 %; Eosinophils # (A) 0.3 k/uL (0-0.7); Eosinophils % (A) 4 %; HCT 45.4 % (39.0-53.0); HGB 14.9 gm/dL (13.0-17.5); Lymphocytes # (A) 1.6 k/uL (1.0-4.8); Lymphocytes % (A) 25 %; MCH 28.7 pg (25.0-35.0); MCHC 32.9 g/dL (31.0-37.0); MCV 87.2 fL (80.0-100.0); Mean Platelet Volume 7.5; Monocytes # (A) 0.3 k/uL (0-1.0); Monocytes % (A) 4 %; Neutrophils % (A) 64 %; Platelet Count 160 k/uL (150-450); RBC 5.21 m/uL (4.30-5.90); RDW 13.7 % (11.5-15.5); WBC 6.3 k/uL (3.8-10.6)
[2019-11-27 08:02] LABS: Partial Thromboplastin Time 24.5 sec (22.0-30.0); Prothrombin Time 10.7 sec (9.0-12.0)
[2019-11-27 08:07] LABS: ALT 20 U/L (4-49); AST 27 U/L (17-59); African American GFR (CKD) >90 (>60 ml/min/1.73 sqM); Albumin 3.9 g/dL (3.5-5.0); Alkaline Phosphatase 95 U/L (38-126); Anion Gap 6 mmol/L; Blood Urea Nitrogen 21 mg/dL (9-20); Calcium 9.3 mg/dL (8.4-10.2); Carbon Dioxide 28 mmol/L (22-30); Chloride 105 mmol/L (98-107); Creatine Kinase 69 U/L (55-170); Glucose 130 mg/dL (74-99); Magnesium 2.2 mg/dL (1.6-2.3); Non-African American GFR(CKD) 81 (>60 ml/min/1.73 sqM); Potassium 4.5 mmol/L (3.5-5.1); Sodium 139 mmol/L (137-145); Total Bilirubin 0.6 mg/dL (0.2-1.3); Total Protein 6.3 g/dL (6.3-8.2)
--- NOTE | 2019-11-27 08:23 | XR ---
EXAMINATION TYPE: XR chest 2V DATE OF EXAM: 11/27/2019 COMPARISON: None HISTORY: 69-year-old male with chest pain and dizziness TECHNIQUE: AP and lateral views FINDINGS: Partially visualized reverse left shoulder arthroplasty. Heart appears upper limits of normal in siz e. Aorta within normal limits. Some strandy atelectasis at the left base. No consolidation or pleural effusion. IMPRESSION: Heart upper limits of normal in size. No acute cardiopulmonary process.
[2019-11-27] MEDS: NITROGLYCERIN SL TABS 0.4 MG TAB SUBLINGUAL STA (08:31)
[2019-11-27] MEDS ORDERED: SODIUM CHLORIDE 0.9% 500 ML 500 ML IV ONE (08:32)
[2019-11-27] MEDS ORDERED: HEPARIN SODIUM,PORCINE 5,000 UNIT/ML 1 ML VIAL IV ONE (08:52)
[2019-11-27] MEDS ORDERED: NITROGLYCERIN SL TABS 0.4 MG TAB SUBLINGUAL PRN (08:52)
[2019-11-27] MEDS ORDERED: SODIUM CHLORIDE 0.9% 1,000 ML IV STA (08:56)
[2019-11-27] MEDS ORDERED: METOPROLOL TARTRATE 25 MG TAB PO SCH (09:00)
[2019-11-27] MEDS ORDERED: HEPARIN SOD,PORK IN 0.45% NACL 25,000 UNIT in 0.45% NACL 1 250ML.BAG IV SCH (09:00)
[2019-11-27] MEDS: MULTIVITAMINS, THERA 1 EACH TAB PO SCH (10:23)
[2019-11-27] MEDS: NAPROXEN 250 MG TAB PO SCH (10:23)
[2019-11-27] MEDS: FAMOTIDINE 20 MG TAB PO SCH (10:24)
[2019-11-27] MEDS: ESCITALOPRAM 10 MG TAB PO SCH (10:24)
[2019-11-27] MEDS ORDERED: ALBUTEROL NEBULIZED 2.5 MG/3 ML INHALATION PRN (16:48)
--- NOTE | 2019-11-27 16:51 | P.HPIM ---
History of Present Illness H&P Date: 11/27/19 Chief Complaint: Chest pain History of presenting complaint: This is a pleasant 69-year-old patient of Dr. Kamara. Chronic stable medical conditions include atrial fibrillation, GERD, hypertension, osteoarthritis, gastric ulcer. Known history of coronary artery disease with stents 2. Patient on 7:00 this morning that are heavy chest pressure lasted for a good few hours. Left arm felt heavy. [place] a bit dizzy perspiration. Tired rundown. Presented to ER. Admitted with unstable angina. Initial troponin was negative. Put on IV heparin. When I saw the patient the pain is subsided. 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 Depression and anxiety. Social history: Patient smoked for 48 years stopped in 2012 up to 2 packs a day. No alcohol. . Physical examination: VITAL SIGNS: 98.1, 150, 20, 9807 3, 96% room air GENERAL: BMI 29.7, sitting up in bed, slightly anxious]. EYES: Pupils equal. Conjunctiva normal. HEENT: External appearance of nose and ears normal, oral cavity grossly normal. NECK: JVD not raised; masses not palpable. HEART: First and second heart sounds are normal; no edema. LUNGS: Respiratory rate normal; decreased breath sounds. ABDOMEN: Soft, nontender, liver spleen not palpable, no masses palpable. PSYCH: Alert and oriented x3; mood and affect normal. MUSCULAR skeletal: Evidence of OA NEUROLOGICAL: Cranial nerves grossly intact; no facial asymmetry, power and sensation grossly intact. LYMPHATICS: No lymph nodes palpable in the axilla and neck. INVESTIGATIONS, reviewed in the clinical context: White count 6.3 hemoglobin 14.9 platelets 160 potassium 4.5 creatinine 0.96 Troponin I less than 0.012, 0.012, 0.041 ProBNP 128 EKG tracing personally reviewed by me-atrial fibrillation rate uncontrolled Chest x-ray film personally reviewed by me-cardiomegaly and interstitial prominence Assessment: -Unstable angina in a patient with known coronary artery disease -Persistent atrial fibrillation currently uncontrolled, POA -IV heparin monitoring -Coronary artery disease prior history of stent -GERD -Hyperlipidemia -Essential hypertension -Primary osteoarthritis -Anxiety depression not otherwise specified -BPH -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 Patient is on IV heparin and IV Cardizem. Cardiology consulted. Care was discussed with the patient. Questions were answered. On Lopressor. 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 History of Any Multi-Drug Resistant Organisms: None Reported Past Surgical History: Heart Catheterization With Stent, Hernia Repair, Joint Replacement, Orthopedic Surgery Additional Past Surgical History / Comment(s): heart stents x2, reverse left shoulder replacement, left shoulder surgery (total 3), arthroscopy left knee, rt ankle ORIF, 05-22-15 TOTAL LT KNEE REPLACEMENT, 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 IN FACE-CHEEKS & EYES (JAN 2018) Past Anesthesia/Blood Transfusion Reactions: No Reported Reaction Additional Past Anesthesia/Blood Transfusion Reaction / Comment(s): CLAUSTERPHOBIC Date of Last Stent Placement:: 05/2017 Past Psychological History: No Psychological Hx Reported, Anxiety, Depression Smoking Status: Never smoker Past Alcohol Use History: None Reported Past Drug Use History: None Reported - Past Family History Mother Family Medical History: Dementia Father Family Medical History: Hyperlipidemia, Myocardial Infarction ([place]) Medications and Allergies Home Medications Medication Instructions Recorded Confirmed Type Multivitamins, Thera [Multivitamin 1 tab PO DAILY 05/10/15 11/27/19 History (formulary)] Tamsulosin [Flomax] 0.4 mg PO DAILY 05/10/15 11/27/19 History Famotidine 40 mg PO HS 05/22/17 11/27/19 History Fish Oil/Dha/Epa [Fish Oil 1,200 1 cap PO DAILY 05/22/17 11/27/19 History mg Fish Oil] Aspirin 81 mg PO DAILY #30 chew 05/27/17 11/27/19 Rx Atorvastatin [Lipitor] 80 mg PO HS #30 tab 05/27/17 11/27/19 Rx Nitroglycerin Sl Tabs [Nitrostat] 0.4 mg SUBLINGUAL Q5M PRN #25 tab 05/27/17 11/27/19 Rx Escitalopram [Lexapro] 10 mg PO DAILY 07/27/18 11/27/19 History lisinopriL [Zestril] 20 mg PO HS 07/27/18 11/27/19 History Aclidinium Bledsoe [Tudorza 1 puff INHALATION RT-Q12H 11/27/19 11/27/19 History Pressair] Albuterol Inhaler [Ventolin Hfa 2 puff INHALATION RT-Q6H PRN 11/27/19 11/27/19 History Inhaler] Candesartan Cilexetil [Atacand] 16 mg PO DAILY 11/27/19 11/27/19 History Dicyclomine [Bentyl] 20 mg PO BID 11/27/19 11/27/19 History Magnesium 200 mg PO DAILY 11/27/19 11/27/19 History Metoprolol Succinate (ER) [Toprol 25 mg PO DAILY 11/27/19 11/27/19 History Xl] Pantoprazole Sodium [Protonix] 40 mg PO DAILY 11/27/19 11/27/19 History Ranolazine [Ranexa] 500 mg PO BID 11/27/19 11/27/19 History Sildenafil Citrate [Viagra] 100 mg PO DAILY PRN 11/27/19 11/27/19 History Allergies Allergy/AdvReac Type Severity Reaction Status Date / Time No Known Allergies Allergy Verified 11/27/19 09:48 Physical Exam Vitals: Vital Signs Temp Pulse Pulse Resp BP BP Pulse Ox 11/27/19 10:20 97.6 F 64 16 117/73 94 L 11/27/19 10:02 118 H 20 98/66 97 11/27/19 09:30 119 H 18 108/67 97 11/27/19 09:00 125 H 20 113/82 95 11/27/19 08:45 117 H 18 101/57 95 11/27/19 08:30 129 H 20 97/77 96 11/27/19 08:00 125 H 20 100/74 100 11/27/19 07:45 160 H 22 98/74 100 11/27/19 07:30 98.1 F 151 H 20 98/73 96 Intake and Output 11/26/19 11/27/19 11/27/19 22:59 06:59 14:59 Other: Weight 102.058 kg Results CBC & Chem 7: 11/27/19 07:38 11/27/19 07:38 Labs: Abnormal Lab Results - Last 24 Hours (Table) 11/27/19 Range/Units 07:38 BUN 21 H (9-20) mg/dL Glucose 130 H (74-99) mg/dL
[2019-11-27] MEDS: IPRATROPIUM 0.5 MG/2.5 ML NEBU INHALATION SCH (18:35)
[2019-11-27] MEDS: TAMSULOSIN 0.4 MG CAP.ER.24H PO SCH (19:41)
[2019-11-27] MEDS: METOPROLOL TARTRATE 25 MG TAB PO SCH (19:41)
[2019-11-27] MEDS: ATORVASTATIN 80 MG TAB PO SCH (19:41)
[2019-11-27] MEDS: RANOLAZINE 500 MG TAB.ER.12H PO SCH (19:41)
[2019-11-27] MEDS: DICYCLOMINE 20 MG TAB PO SCH (19:42)
[2019-11-27] MEDS ORDERED: lisinopriL 20 MG TAB PO SCH (21:00)
[2019-11-28] MEDS: PANTOPRAZOLE 40 MG TABLET PO SCH (04:49)
[2019-11-28 06:28] LABS: African American GFR (CKD) >90 (>60 ml/min/1.73 sqM); Anion Gap 1 mmol/L; Blood Urea Nitrogen 19 mg/dL (9-20); Calcium 8.7 mg/dL (8.4-10.2); Carbon Dioxide 31 mmol/L (22-30); Chloride 107 mmol/L (98-107); Cholesterol 103 mg/dL (<200); Glucose 104 mg/dL (74-99); HDL Cholesterol 37 mg/dL (40-60); LDL Cholesterol,Calculated 53 mg/dL (0-99); Magnesium 2.2 mg/dL (1.6-2.3); Non-African American GFR(CKD) 81 (>60 ml/min/1.73 sqM); Potassium 4.4 mmol/L (3.5-5.1); Sodium 139 mmol/L (137-145); Triglycerides 66 mg/dL (<150)
[2019-11-28] MEDS: IPRATROPIUM 0.5 MG/2.5 ML NEBU INHALATION SCH ×4 (07:05→20:14)
[2019-11-28] MEDS ORDERED: ASPIRIN 325 MG TAB PO SCH ×2 (09:00)
[2019-11-28] MEDS: ASPIRIN 81 MG PO SCH (09:07)
[2019-11-28] MEDS: METOPROLOL TARTRATE 25 MG TAB PO SCH ×2 (09:08→20:03)
[2019-11-28] MEDS: ESCITALOPRAM 10 MG TAB PO SCH (09:08)
[2019-11-28] MEDS: LOSARTAN 50 MG TAB PO SCH (09:08)
[2019-11-28] MEDS: FAMOTIDINE 20 MG TAB PO SCH (09:08)
[2019-11-28] MEDS: MULTIVITAMINS, THERA 1 EACH TAB PO SCH (09:08)
[2019-11-28] MEDS: RANOLAZINE 500 MG TAB.ER.12H PO SCH ×2 (09:08→20:04)
[2019-11-28] MEDS: MAGNESIUM OXIDE 400 MG TAB PO SCH (09:08)
[2019-11-28] MEDS: DICYCLOMINE 20 MG TAB PO SCH ×2 (09:08→20:04)
[2019-11-28] MEDS: NAPROXEN 250 MG TAB PO SCH (09:10)
[2019-11-28] MEDS: AMIODARONE 200 MG TAB PO SCH ×3 (11:37→20:04)
[2019-11-28] MEDS: APIXABAN 5 MG TAB PO SCH ×2 (11:38→20:04)
--- NOTE | 2019-11-28 12:52 | P.CRDCN ---
History of Present Illness History of present illness: HISTORY OF PRESENTING ILLNESS This is a pleasant 69-year-old male past medical history significant for coronary artery disease status post PCI to the LAD with mild nonobstructive disease of the mid RCA, hypertension, dyslipidemia, atrial tachycardia and former nicotine dependence. He follows in the office with Dr. Martinez. We have been asked to see in consultation for atrial fibrillation. He presented to the hospital with symptoms of chest discomfort. He states he woke up at 6:30 yesterday morning and felt to have a tight sensation in the left precordial region associated with significant dyspnea. On arrival to the emergency department he was noted to be in atrial fibrillation with rapid ventricular rates. He was initiated on heparin and Cardizem infusion. He has worn off outpatient monitors in the past that have captured atrial tachycardia but no definite A. fib. He converted spontaneously to sinus mechanism yesterday afternoon. He states his symptoms subsided when he converted. He continues to maintain sinus mechanism at this time. He has had no further symptoms of chest discomfort. Chest x-ray negative for an acute cardiopulmonary process. Laborat ory data reviewed, CBC unremarkable, sodium 139, potassium 4.4, creatinine 0.96, first 2 troponins were negative third troponin was 0.041 and first troponin was 0.026. NT proBNP 128, LDL 53 and HDL 37. Currently maintained on aspirin 81 mg daily, atorvastatin 80 mg daily, Toprol 25 mg daily, Ranexa 500 mg twice a day, lisinopril 20 mg at bedtime and candesartan/hydrochlorothiazide 16/12.5 mg tori ly. He underwent cardiac catheterization December 2018 revealing a patent stent in the LAD with mild diffuse disease of the mid RCA that is nonobstructive. Most recent echocardiogram performed in the office in 2019 revealed preserved LV systolic function with no significant valvular abnormalities. REVIEW OF SYSTEMS At the time of my exam: CONSTITUTIONAL: Denies fever or chills. CARDIOVASCULAR: Denies chest pain, shortness of breath, orthopnea, PND or palpitations. RESPIRATORY: Denies cough. GASTROINTESTINAL: Denies abdominal pain, diarrhea, constipation, nausea or vomiting. MUSCULOSKELETAL: Denies myalgias. NEUROLOGIC: Denies numbness, tingling or weakness. ENDOCRINE: Denies fatigue, weight change, polydipsia or polyurina. GENITOURINARY: Denies burning, hematuria or urgency with micturation. HEMATOLOGIC: Denies history of anemia or bleeding. PHYSICAL EXAMINATION Blood pressure 113/60 heart rate 67 afebrile and maintaining oxygen saturation on room air. CONSTITUTIONAL: No apparent distress. HEENT: Head is normocephalic. Pupils are equal, round. Sclerae anicteric. Mucous membranes of the mouth are moist. No JVD. No carotid bruit. CHEST EXAMINATION: Lungs are clear to auscultation. No chest wall tenderness is noted on palpation or with deep breathing. HEART EXAMINATION: Regular rate and rhythm. S1, S2 heard. No murmurs, gallops or rub. ABDOMEN: Soft, nontender. Positive bowel sounds. EXTREMITIES: 2+ peripheral pulses, no lower extremity edema and no calf tenderness. NEUROLOGIC EXAMINATION: Patient is awake, alert and oriented x3. ASSESSMENT New onset paroxysmal atrial fibrillation with rapid ventricular rates, spontaneously converted to sinus mechanism which is currently maintaining. Mild troponin leak, likely secondary to tachycardia Coronary artery disease status post PCI to the LAD Hypertension Dyslipidemia PLAN Obtain 2-D echocardiogram and Doppler study to assess cardiac structure and function specifically for segmental wall motion abnormalities. Discontinue heparin infusion and initiate Eliquis 5 mg twice a day. A prescription will be sent to the pharmacy to check the cost of his monthly co- pay. Initiate amiodarone 200 mg 3 times a day. He is currently on lisinopril and losartan. We will discontinue the lisinopril. Further recommendations to follow based upon clinical course. Thank you kindly for this consultation. Nurse Practitioner note has been reviewed, I agree with a documented findings and plan of care. Patient was seen and examined. 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 History of Any Multi-Drug Resistant Organisms: None Reported Past Surgical History: Heart Catheterization With Stent, Hernia Repair, Joint Replacement, Orthopedic Surgery Additional Past Surgical History / Comment(s): heart stents x2, reverse left shoulder replacement, left shoulder surgery (total 3), arthroscopy left knee, rt ankle ORIF, 05-22-15 TOTAL LT KNEE REPLACEMENT, 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 IN FACE-CHEEKS & EYES (JAN 2018) Past Anesthesia/Blood Transfusion Reactions: No Reported Reaction Additional Past Anesthesia/Blood Transfusion Reaction / Comment(s): CLAUSTERPHOBIC Date of Last Stent Placement:: 05/2017 Past Psychological History: No Psychological Hx Reported, Anxiety, Depression Smoking Status: Never smoker Past Alcohol Use History: None Reported Past Drug Use History: None Reported - Past Family History Mother Family Medical History: Dementia Father Family Medical History: Hyperlipidemia, Myocardial Infarction (MS) Medications and Allergies Home Medications Medication Instructions Recorded Confirmed Type Multivitamins, Thera [Multivitamin 1 tab PO DAILY 05/10/15 11/27/19 History (formulary)] Tamsulosin [Flomax] 0.4 mg PO DAILY 05/10/15 11/27/19 History Famotidine 40 mg PO HS 05/22/17 11/27/19 History Fish Oil/Dha/Epa [Fish Oil 1,200 1 cap PO DAILY 05/22/17 11/27/19 History mg Fish Oil] Aspirin 81 mg PO DAILY #30 chew 05/27/17 11/27/19 Rx Atorvastatin [Lipitor] 80 mg PO HS #30 tab 05/27/17 11/27/19 Rx Nitroglycerin Sl Tabs [Nitrostat] 0.4 mg SUBLINGUAL Q5M PRN #25 tab 05/27/17 11/27/19 Rx Escitalopram [Lexapro] 10 mg PO DAILY 07/27/18 11/27/19 History lisinopriL [Zestril] 20 mg PO HS 07/27/18 11/27/19 History Aclidinium [place] [Tudorza 1 puff INHALATION RT-Q12H 11/27/19 11/27/19 History Pressair] Albuterol Inhaler [Ventolin Hfa 2 puff INHALATION RT-Q6H PRN 11/27/19 11/27/19 History Inhaler] Candesartan Cilexetil [Atacand] 16 mg PO DAILY 11/27/19 11/27/19 History Candesartan/Hydrochlorothiazid 16 mg PO DAILY 11/27/19 11/27/19 History [Atacand Hct 16-12.5 mg Tab] Dicyclomine [Bentyl] 20 mg PO BID 11/27/19 11/27/19 History Magnesium 200 mg PO DAILY 11/27/19 11/27/19 History Metoprolol Succinate (ER) [Toprol 25 mg PO DAILY 11/27/19 11/27/19 History Xl] Pantoprazole Sodium [Protonix] 40 mg PO DAILY 11/27/19 11/27/19 History Ranolazine [Ranexa] 500 mg PO BID 11/27/19 11/27/19 History Sildenafil Citrate [Viagra] 100 mg PO DAILY PRN 11/27/19 11/27/19 History Apixaban [Eliquis] 5 mg PO BID #90 tab 11/28/19 Rx Allergies Allergy/AdvReac Type Severity Reaction Status Date / Time No Known Allergies Allergy Verified 11/27/19 09:48 Physical Exam Vitals: Vital Signs Temp Pulse Pulse Pulse Resp BP BP 11/28/19 07:15 66 11/28/19 07:05 66 11/28/19 04:00 67 15 124/73 11/27/19 23:43 97.9 F 59 L 16 128/67 11/27/19 19:44 98 F 68 16 117/58 11/27/19 18:45 70 16 11/27/19 18:37 72 16 11/27/19 15:34 97.7 F 55 L 16 126/69 11/27/19 11:35 98.0 F 56 L 11/27/19 11:13 120 H 16 109/58 11/27/19 10:38 11/27/19 10:20 97.6 F 113 H 16 117/73 11/27/19 10:02 118 H 20 98/66 11/27/19 09:30 119 H 18 108/67 11/27/19 09:00 125 H 20 113/82 11/27/19 08:45 117 H 18 101/57 Pulse Ox 11/28/19 07:15 11/28/19 07:05 11/28/19 04:00 97 11/27/19 23:43 96 11/27/19 19:44 96 11/27/19 18:45 11/27/19 18:37 11/27/19 15:34 97 11/27/19 11:35 11/27/19 11:13 96 11/27/19 10:38 95 11/27/19 10:20 94 L 11/27/19 10:02 97 11/27/19 09:30 97 11/27/19 09:00 95 11/27/19 08:45 95 Intake and Output 11/27/19 11/28/19 11/28/19 22:59 06:59 14:59 Intake Total 120 Balance 120 Intake: Oral 120 Other: Voiding Method Toilet Toilet # Voids 1 1 Weight 101.5 kg Results 11/27/19 07:38 11/28/19 05:51 Cardiac Enzymes 11/27/19 11/27/19 Range/Units 10:20 13:59 Troponin I <0.012 0.041 H* (0.000-0.034) ng/mL Coagulation 11/27/19 11/28/19 Range/Units 16:14 05:51 APTT 53.3 H 43.4 H (22.0-30.0) sec Lipids 11/28/19 Range/Units 05:51 Triglycerides 66 (<150) mg/dL Cholesterol 103 (<200) mg/dL HDL Cholesterol 37 L (40-60) mg/dL Comprehensive Metabolic Panel 11/28/19 Range/Units 05:51 Sodium 139 (137-145) mmol/L Potassium 4.4 (3.5-5.1) mmol/L Chloride 107 (98-107) mmol/L Carbon Dioxide 31 H (22-30) mmol/L BUN 19 (9-20) mg/dL Creatinine 0.96 (0.66-1.25) mg/dL Glucose 104 H (74-99) mg/dL Calcium 8.7 (8.4-10.2) mg/dL Current Medications Generic Name Dose Route Start Last Admin Trade Name Freq PRN Reason Stop Dose Admin Albuterol Sulfate 2.5 mg 11/27/19 16:48 11/27/19 18:37 Ventolin Nebulized INHALATION 2.5 mg RT-Q6H PRN Administration Shortness Of Breath Aspirin 325 mg 11/28/19 09:00 Aspirin PO DAILY [facility] Atorvastatin Calcium 80 mg 11/27/19 21:00 11/27/19 19:41 Lipitor PO 80 mg HS KIP Administration Dicyclomine HCl 20 mg 11/27/19 21:00 11/27/19 19:42 Bentyl PO 20 mg BID KIP Administration Escitalopram Oxalate 10 mg 11/27/19 10:00 11/27/19 10:24 Lexapro PO 10 mg DAILY KIP Administration Famotidine 40 mg 11/27/19 10:00 11/27/19 10:24 Pepcid PO 40 mg DAILY [facility] Administration Heparin Sodium/Sodium Chloride 250 mls @ 10.002 mls/hr 11/27/19 09:00 11/27/19 09:58 25,000 unit/ Sodium Chloride IV 9.8 units/kg/hr .Q24H KIP 10.002 mls/hr Administration Protocol 9.8 UNITS/KG/HR Ipratropium [place] 0.5 mg 11/27/19 20:00 11/28/19 07:05 Atrovent Nebulized INHALATION 0.5 mg RT-QID [facility] Administration Lisinopril 20 mg 11/27/19 21:00 11/27/19 19:41 Zestril PO 20 mg HS [facility] Administration Losartan Potassium 100 mg 11/28/19 09:00 Cozaar PO DAILY [facility] Magnesium Oxide 200 mg 11/28/19 09:00 Mag-Ox PO DAILY [facility] Metoprolol Tartrate 25 mg 11/27/19 21:00 11/27/19 19:41 Lopressor PO 25 mg BID [facility] Administration Multivitamins 1 each 11/27/19 10:00 11/27/19 10:23 Theragran PO 1 each DAILY [facility] Administration Naproxen 500 mg 11/27/19 10:00 11/27/19 10:23 Naprosyn PO 500 mg DAILY [facility] Administration Nitroglycerin 0.4 mg 11/27/19 08:52 Nitrostat SUBLINGUAL Q5M PRN Chest Pain Pantoprazole Sodium 40 mg 11/28/19 07:30 11/28/19 04:49 Protonix PO Not Given AC-BRKFST [facility] Ranolazine 500 mg 11/27/19 21:00 11/27/19 19:41 Ranexa PO 500 mg BID [facility] Administration Tamsulosin HCl 0.4 mg 11/27/19 21:00 11/27/19 19:41 Flomax PO 0.4 mg HS [facility] Administration Intake and Output 11/27/19 11/28/19 11/28/19 22:59 06:59 14:59 Intake Total 120 Balance 120 Intake: Oral 120 Other: Voiding Method Toilet Toilet # Voids 1 1 Weight 101.5 kg 11/27/19 07:38 11/28/19 05:51
--- NOTE | 2019-11-28 16:52 | P.PN ---
Progress Note - Text Progress Note Date: 11/28/19 Chief Complaint: Chest pain History of presenting complaint: This is a pleasant 69-year-old patient of Dr. Kamara. Chronic stable medical conditions include atrial fibrillation, GERD, hypertension, osteoarthritis, gastric ulcer. Known history of coronary artery disease with stents 2. Patient on 7:00 this morning that are heavy chest pressure lasted for a good few hours. Left arm felt heavy. [place] a bit dizzy perspiration. Tired rundown. Presented to ER. Admitted with unstable angina. Initial troponin was negative. Put on IV heparin. When I saw the patient the pain is subsided. Admitted with unstable angina and atrial fibrillation uncontrolled. Patient started IV heparin and IV Cardizem. Today-sitting up in a chair. Feeling better. Symptoms better controlled. Occasional fluttering only. Been in sinus rhythm since this morning. Started on amiodarone and eliquis, by cardiology. IV heparin discontinued. Overall feeling better. Review of systems: Was done for constitutional, cardiovascular, GI, pulmonary. relevant finding as above Active Medications Albuterol Sulfate (Ventolin Nebulized) 2.5 mg INHALATION RT-Q6H PRN PRN Reason: Shortness Of Breath Last Admin: 11/27/19 18:37 Dose: 2.5 mg Documented by: Amiodarone HCl (Cordarone) 200 mg PO TID [facility] Last Admin: 11/28/19 16:09 Dose: 200 mg Documented by: Apixaban (Eliquis) 5 mg PO BID [facility] Last Admin: 11/28/19 11:38 Dose: 5 mg Documented by: Aspirin (Aspirin) 81 mg PO DAILY [facility] Last Admin: 11/28/19 09:07 Dose: 81 mg Documented by: Atorvastatin Calcium (Lipitor) 80 mg PO HS [facility] Last Admin: 11/27/19 19:41 Dose: 80 mg Documented by: Dicyclomine HCl (Bentyl) 20 mg PO BID [facility] Last Admin: 11/28/19 09:08 Dose: 20 mg Documented by: Escitalopram Oxalate (Lexapro) 10 mg PO DAILY [facility] Last Admin: 11/28/19 09:08 Dose: 10 mg Documented by: Famotidine (Pepcid) 40 mg PO DAILY [facility] Last Admin: 11/28/19 09:08 Dose: 40 mg Documented by: Ipratropium [place] (Atrovent Nebulized) 0.5 mg INHALATION RT-QID [facility] Last Admin: 11/28/19 15:52 Dose: 0.5 mg Documented by: Losartan Potassium (Cozaar) 100 mg PO DAILY [facility] Last Admin: 11/28/19 09:08 Dose: 100 mg Documented by: Magnesium Oxide (Mag-Ox) 200 mg PO DAILY [facility] Last Admin: 11/28/19 09:08 Dose: 200 mg Documented by: Metoprolol Tartrate (Lopressor) 25 mg PO BID [facility] Last Admin: 11/28/19 09:08 Dose: 25 mg Documented by: Multivitamins (Theragran) 1 each PO DAILY [facility] Last Admin: 11/28/19 09:08 Dose: 1 each Documented by: Naproxen (Naprosyn) 500 mg PO DAILY [facility] Last Admin: 11/28/19 09:10 Dose: Not Given Documented by: Nitroglycerin (Nitrostat) 0.4 mg SUBLINGUAL Q5M PRN PRN Reason: Chest Pain Pantoprazole Sodium (Protonix) 40 mg PO AC-BRKFST [facility] Last Admin: 11/28/19 04:49 Dose: Not Given Documented by: Ranolazine (Ranexa) 500 mg PO BID [facility] Last Admin: 11/28/19 09:08 Dose: 500 mg Documented by: Tamsulosin HCl (Flomax) 0.4 mg PO HS [facility] Last Admin: 11/27/19 19:41 Dose: 0.4 mg Documented by: Physical examination: VITAL SIGNS: 97.6, 60, 14, 84 x 52, 96% room air GENERAL: Sitting up in a chair, eating, comfortable EYES: Pupils equal. Conjunctiva normal. HEENT: External appearance of nose and ears normal, oral cavity grossly normal. NECK: JVD not raised; masses not palpable. HEART: First seconds are normal, no edema. LUNGS: Respiratory rate normal; decreased breath sounds. ABDOMEN: Soft, nontender, liver spleen not palpable, no masses palpable. PSYCH: Alert and oriented x3; mood and affect normal. MUSCULAR skeletal: Evidence of OA INVESTIGATIONS, reviewed in the clinical context: Potassium 4.4 creatinine 0.96 White count 6.3 hemoglobin 14.9 platelets 160 potassium 4.5 creatinine 0.96 Troponin I less than 0.012, 0.012, 0.041 ProBNP 128 EKG tracing personally reviewed by me-atrial fibrillation rate uncontrolled Chest x-ray film personally reviewed by me-cardiomegaly and interstitial prominence Assessment: -Unstable angina in a patient with known coronary artery disease -Paroxysmal atrial fibrillation-now in sinus rhythm. 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 Started eliquis. Started on amiodarone. By cardiology. Also Lopressor. IV Cardizem discontinued. Discussed with the patient. Encouraged to ambulate
[2019-11-28] MEDS: TAMSULOSIN 0.4 MG CAP.ER.24H PO SCH (20:04)
[2019-11-28] MEDS: ATORVASTATIN 80 MG TAB PO SCH (20:04)
[2019-11-29] MEDS: PANTOPRAZOLE 40 MG TABLET PO SCH (05:46)
[2019-11-29] MEDS: AMIODARONE 200 MG TAB PO SCH (08:31)
[2019-11-29] MEDS: APIXABAN 5 MG TAB PO SCH (08:31)
[2019-11-29] MEDS: MULTIVITAMINS, THERA 1 EACH TAB PO SCH (08:31)
[2019-11-29] MEDS: FAMOTIDINE 20 MG TAB PO SCH (08:31)
[2019-11-29] MEDS: METOPROLOL TARTRATE 25 MG TAB PO SCH (08:31)
[2019-11-29] MEDS: DICYCLOMINE 20 MG TAB PO SCH (08:31)
[2019-11-29] MEDS: ASPIRIN 81 MG PO SCH (08:31)
[2019-11-29] MEDS: RANOLAZINE 500 MG TAB.ER.12H PO SCH (08:31)
[2019-11-29] MEDS: MAGNESIUM OXIDE 400 MG TAB PO SCH (08:32)
[2019-11-29] MEDS: ESCITALOPRAM 10 MG TAB PO SCH (08:32)
[2019-11-29] MEDS: IPRATROPIUM 0.5 MG/2.5 ML NEBU INHALATION SCH ×2 (08:50→12:21)
[2019-11-29] MEDS: NAPROXEN 250 MG TAB PO SCH (09:20)
[2019-11-29] MEDS: LOSARTAN 50 MG TAB PO SCH (11:22)
[2019-11-29 11:58] VITALS: BP 119/74; RESP 14; TEMP 98
[2019-11-29 12:31] VITALS: PULSE 64
--- NOTE | 2019-11-29 13:05 | P.PN ---
Subjective Progress Note Date: 11/29/19 CHIEF COMPLAINT: A fib HISTORY OF PRESENT ILLNESS: Patient examined at the bedside. He denies chest pain. Denies shortness of breath. He is maintaining sinus mechanism on telemetry. Blood pressure stable. Heart rate 60s. PHYSICAL EXAM: VITAL SIGNS: Reviewed. GENERAL: Well-developed in no acute distress. NECK: Supple. No JVD or thyromegaly LUNGS: Respirations even and unlabored. Lungs essentially clear to auscultation bilaterally. HEART: Regular rate and rhythm. S1 and S2 heard. EXTREMITIES: Normal range of motion. No clubbing or cyanosis. Peripheral pulses intact. No lower extremity edema ASSESSMENT: New onset paroxysmal atrial fibrillation with rapid ventricular rates, spontaneously converted to sinus mechanism which is currently maintaining. Mild troponin leak, likely secondary to tachycardia Coronary artery disease status post PCI to the LAD Hypertension Dyslipidemia PLAN: -Continue current cardiac medications -Patient stable for discharge home from a cardiac standpoint. Patient to follow up outpatient with Dr. Martinez Nurse practitioner note has been reviewed by physician. Signing provider agrees with the documented findings, assessment, and plan of care. Objective - Vital Signs Vital signs: Vital Signs Temp 98 F 11/29/19 11:57 Pulse 56 L 11/29/19 11:57 Resp 14 11/29/19 11:58 BP 119/74 11/29/19 11:57 Pulse Ox 99 11/29/19 11:57 Intake & Output 11/28/19 11/29/19 11/29/19 18:59 06:59 18:59 Intake Total 510 260 Balance 510 260 Weight 100.8 kg Intake: IV 30 20 Invasive Line 1 30 20 Oral 480 240 Other: Voiding Method Toilet Toilet Toilet # Voids 3 1 1 - Labs CBC & Chem 7: 11/27/19 07:38 11/28/19 05:51
--- NOTE | 2019-11-29 21:45 | P.DS ---
Providers Date of admission: 11/28/19 14:51 Expected date of discharge: 11/29/19 Attending physician: Moise Lorenzo Consults: 11/27/19 08:52 Consult Physician Urgent Consulting Provider: Theron Martinez Consult Reason/Comments: Rapid A. fib, chest pain Do you want consulting provider notified?: Yes Primary care physician: Paulino Kamara [facility] Course: Chief Complaint: Chest pain History of presenting complaint: This is a pleasant 69-year-old patient of Dr. Kamara. Chronic stable medical conditions include atrial fibrillation, GERD, hypertension, osteoarthritis, gastric ulcer. Known history of coronary artery disease with stents 2. Patient on 7:00 this morning that are heavy chest pressure lasted for a good few hours. Left arm felt heavy. [place] a bit dizzy perspiration. Tired rundown. Presented to ER. Admitted with unstable angina. Initial troponin was negative. Put on IV heparin. When I saw the patient the pain is subsided. Admitted with unstable angina and atrial fibrillation uncontrolled. Patient started IV heparin and IV Cardizem. Started on amiodarone and eliquis. Converted to sinus rhythm. Today-patient doing well. Up and about. No cardiac symptoms. Cleared by cardiology. Consultation: Dr. Tovar from cardiology Physical examination: VITAL SIGNS: 98, 56, 14, 119/74, 99% room air GENERAL: Sitting up-, comfortable EYES: Pupils equal. Conjunctiva normal. HEENT: External appearance of nose and ears normal, oral cavity grossly normal. NECK: JVD not raised; masses not palpable. HEART: First seconds are normal, no edema. LUNGS: Respiratory rate normal; decreased breath sounds. ABDOMEN: Soft, nontender, liver spleen not palpable, no masses palpable. PSYCH: Alert and oriented x3; mood and affect normal. MUSCULAR skeletal: Evidence of OA INVESTIGATIONS, reviewed in the clinical context: Potassium 4.4 creatinine 0.96 White count 6.3 hemoglobin 14.9 platelets 160 potassium 4.5 creatinine 0.96 Troponin I less than 0.012, 0.012, 0.041 ProBNP 128 EKG tracing personally reviewed by me-atrial fibrillation rate uncontrolled Chest x-ray film personally reviewed by me-cardiomegaly and interstitial prominence Assessment: -Paroxysmal atrial fibrillation, with rapid ventricular rate-now in sinus rhythm. 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 Disposition: Home Patient Condition at Discharge: Stable Plan - Discharge Summary Discharge Rx Participant: No New Discharge Prescriptions: New Apixaban [Eliquis] 5 mg PO BID #90 tab Amiodarone [Cordarone] 200 mg PO BID #60 tablet Metoprolol Tartrate 25 mg PO BID #60 tab Naproxen [Naprosyn] 500 mg PO DAILY tab Continue Multivitamins, Thera [Multivitamin (formulary)] 1 tab PO DAILY Tamsulosin [Flomax] 0.4 mg PO DAILY Fish Oil/Dha/Epa [Fish Oil 1,200 mg Fish Oil] 1 cap PO DAILY Famotidine 40 mg PO HS Aspirin 81 mg PO DAILY #30 chew Atorvastatin [Lipitor] 80 mg PO HS #30 tab Nitroglycerin Sl Tabs [Nitrostat] 0.4 mg SUBLINGUAL Q5M PRN #25 tab PRN Reason: Chest Pain Escitalopram [Lexapro] 10 mg PO DAILY Aclidinium [place] [Tudorza Pressair] 1 puff INHALATION RT-Q12H Albuterol Inhaler [Ventolin Hfa Inhaler] 2 puff INHALATION RT-Q6H PRN PRN Reason: Shortness Of Breath Candesartan Cilexetil [Atacand] 16 mg PO DAILY Dicyclomine [Bentyl] 20 mg PO BID Pantoprazole Sodium [Protonix] 40 mg PO DAILY Ranolazine [Ranexa] 500 mg PO BID Sildenafil Citrate [Viagra] 100 mg PO DAILY PRN PRN Reason: ED Magnesium 200 mg PO DAILY Discontinued lisinopriL [Zestril] 20 mg PO HS Metoprolol Succinate (ER) [Toprol Xl] 25 mg PO DAILY Candesartan/Hydrochlorothiazid [Atacand Hct 16-12.5 mg Tab] 16 mg PO DAILY Discharge Medication List Multivitamins, Thera [Multivitamin (formulary)] 1 tab PO DAILY 05/10/15 [History] Tamsulosin [Flomax] 0.4 mg PO DAILY 05/10/15 [History] Famotidine 40 mg PO HS 05/22/17 [History] Fish Oil/Dha/Epa [Fish Oil 1,200 mg Fish Oil] 1 cap PO DAILY 05/22/17 [History] Aspirin 81 mg PO DAILY #30 chew 05/27/17 [Rx] Atorvastatin [Lipitor] 80 mg PO HS #30 tab 05/27/17 [Rx] Nitroglycerin Sl Tabs [Nitrostat] 0.4 mg SUBLINGUAL Q5M PRN #25 tab 05/27/17 [Rx] Escitalopram [Lexapro] 10 mg PO DAILY 07/27/18 [History] Aclidinium [place] [Tudorza [place]] 1 puff INHALATION RT-Q12H 11/27/19 [History] Albuterol Inhaler [Ventolin Hfa Inhaler] 2 puff INHALATION RT-Q6H PRN 11/27/19 [History] Candesartan Cilexetil [Atacand] 16 mg PO DAILY 11/27/19 [History] Dicyclomine [Bentyl] 20 mg PO BID 11/27/19 [History] Magnesium 200 mg PO DAILY 11/27/19 [History] Pantoprazole Sodium [Protonix] 40 mg PO DAILY 11/27/19 [History] Ranolazine [Ranexa] 500 mg PO BID 11/27/19 [History] Sildenafil Citrate [Viagra] 100 mg PO DAILY PRN 11/27/19 [History] Apixaban [Eliquis] 5 mg PO BID #90 tab 11/28/19 [Rx] Amiodarone [Cordarone] 200 mg PO BID #60 tablet 11/29/19 [Rx] Metoprolol Tartrate 25 mg PO BID #60 tab 11/29/19 [Rx] Naproxen [Naprosyn] 500 mg PO DAILY tab 11/29/19 [Rx] Follow up Appointment(s)/Referral(s): Theron Martinez MD [STAFF PHYSICIAN] - 12/13/19 8:30 am Paulino Kamara MD [Primary Care Provider] - 12/02/19 10:15 am Patient Instructions/Handouts: A-fib (Atrial Fibrillation) (ED) Discharge Disposition: HOME SELF-CARE
== END 2019-11-29 14:41 | disposition home or self-care (01) | DRG 309 ==
LOC: EC 07:24 → 3SCARD 09:05 → OBSVTOIN 11-28 14:51
PROVIDERS: ADMIT Hospitalist; ATTEND Hospitalist
DX: I48.0 Paroxysmal atrial fibrillation (principal); I25.110 Atherosclerotic heart disease of native coronary artery with unstable angina pectoris; I11.9 Hypertensive heart disease without heart failure; E78.5 Hyperlipidemia, unspecified; J44.9 Chronic obstructive pulmonary disease, unspecified; K21.9 Gastro-esophageal reflux disease without esophagitis; N40.0 Benign prostatic hyperplasia without lower urinary tract symptoms; F41.8 Other specified anxiety disorders; M19.91 Primary osteoarthritis, unspecified site; M54.9 Dorsalgia, unspecified; R79.89 Other specified abnormal findings of blood chemistry; Z79.82 Long term (current) use of aspirin; Z79.899 Other long term (current) drug therapy; Z86.69 Personal history of other diseases of the nervous system and sense organs; Z95.5 Presence of coronary angioplasty implant and graft; Z87.11 Personal history of peptic ulcer disease; Z86.010 Personal history of colon polyps; Z87.828 Personal history of other (healed) physical injury and trauma; Z87.19 Personal history of other diseases of the digestive system; Z96.612 Presence of left artificial shoulder joint; Z96.652 Presence of left artificial knee joint; Z87.81 Personal history of (healed) traumatic fracture; Z81.8 Family history of other mental and behavioral disorders; Z82.49 Family history of ischemic heart disease and other diseases of the circulatory system; Z83.49 Family history of other endocrine, nutritional and metabolic diseases; Z87.891 Personal history of nicotine dependence
CPT/HCPCS: 36415; 71046; 80048; 80053; 80061; 82550; 83735; 83880; 84484; 85025; 85610; 85730; 93005; 94640; 96365; 96366; 96368; 96376; 99291

== ENCOUNTER → 2019-12-27 | Outpatient (CLI) | payer MEDICARE ==
--- NOTE | 2019-12-28 07:06 | US ---
EXAMINATION TYPE: US duplex aorta DATE OF EXAM: 12/27/2019 COMPARISON: 06/30/2018 CLINICAL HISTORY: Z13.6 SCREENING FOR CARDIOVASCULAR DISORDER. Non smoker. EXAM MEASUREMENTS: Abdominal Aorta: Proximal: 2.3 x 2.4 cm Mid: 2.1 x 2.1 cm Distal: 1.7 x 1.5 cm Bifurcation: Right- 1.1 x 1.0 cm Left- 1.1 x 1.0 cm Limited visualization of mid Aorta due to overlying bowel gas. No prominent AAA seen in portions visualized. Mild atherosclerotic plaque. IMPRESSION: 1. Limited evaluation of the mid aorta due to overlying bowel gas. No diagnostic evidence of aneurysm as visualized.
== END | disposition home or self-care (01) ==
LOC: RADUSWWP 15:59
PROVIDERS: ATTEND Family Medicine
DX: Z13.6 Encounter for screening for cardiovascular disorders (principal)
CPT/HCPCS: 93979

== ENCOUNTER 2020-01-04 14:27 | Emergency (ER) | payer MEDICARE ==
[2020-01-04 14:35] VITALS: TEMP 98
[2020-01-04] MEDS ORDERED: SODIUM CHLORIDE 0.9% 1,000 ML IV STA (14:52)
--- NOTE | 2020-01-04 15:00 | ED ---
Dizziness HPI - General Chief Complaint: Dizziness Stated Complaint: Low Blood Pressure Time Seen by Provider: 01/04/20 14:38 Source: patient Mode of arrival: ambulatory Limitations: no limitations - History of Present Illness Initial Comments: Patient is a 69-year-old male, with history of heart disease, stents, A. fib, presenting to emergency Department with complaints of hypotension as well as feeling lightheaded and dizzy when the hypotension occurs x 1 week. Patient was admitted to this hospital for A. fib with RVR 1 month ago, he converted sp ontaneously. He was started on eliquis, amiodarone and was told to continue with losartan. Patient states he was doing well for the initial few weeks but over the past week he's noticed that his blood pressure has been on the lower side and he is feeling symptoms when it does get low. Patient states when he left his home to come to the ER now his blood pressure 71/57. Patient denies any falls but states he has felt dizzy enough to fall. He states he gets a mild headache when his blood pressure gets too low. He states he's been able to eat and drink as normal, he denies any chest pain, palpitations. He does feel like he has mildly short of breath during these hypotension episodes. He denies any belly pain, nausea or vomiting. He states he is scheduled to have a cardiac ablation with Dr. Tanner at the end of this month. He has no further complaints at this time. Upon arrival to the ER, patient's blood pressure is 105/55, rest of vitals are normal. - Related Data Home Medications Medication Instructions Recorded Confirmed Multivitamins, Thera [Multivitamin 1 tab PO DAILY 05/10/15 11/27/19 (formulary)] Tamsulosin [Flomax] 0.4 mg PO DAILY 05/10/15 11/27/19 Famotidine 40 mg PO HS 05/22/17 11/27/19 Fish Oil/Dha/Epa [Fish Oil 1,200 1 cap PO DAILY 05/22/17 11/27/19 mg Fish Oil] Escitalopram [Lexapro] 10 mg PO DAILY 07/27/18 11/27/19 Aclidinium [place] [Tudorza 1 puff INHALATION RT-Q12H 11/27/19 11/27/19 Pressair] Albuterol Inhaler [Ventolin Hfa 2 puff INHALATION RT-Q6H PRN 11/27/19 11/27/19 Inhaler] Candesartan Cilexetil [Atacand] 16 mg PO DAILY 11/27/19 11/27/19 Dicyclomine [Bentyl] 20 mg PO BID 11/27/19 11/27/19 Magnesium 200 mg PO DAILY 11/27/19 11/27/19 Pantoprazole Sodium [Protonix] 40 mg PO DAILY 11/27/19 11/27/19 Ranolazine [Ranexa] 500 mg PO BID 11/27/19 11/27/19 Sildenafil Citrate [Viagra] 100 mg PO DAILY PRN 11/27/19 11/27/19 Previous Rx's Medication Instructions Recorded Aspirin 81 mg PO DAILY #30 chew 05/27/17 Atorvastatin [Lipitor] 80 mg PO HS #30 tab 05/27/17 Nitroglycerin Sl Tabs [Nitrostat] 0.4 mg SUBLINGUAL Q5M PRN #25 tab 05/27/17 Apixaban [Eliquis] 5 mg PO BID #90 tab 11/28/19 Amiodarone [Cordarone] 200 mg PO BID #60 tablet 11/29/19 Metoprolol Tartrate 25 mg PO BID #60 tab 11/29/19 Naproxen [Naprosyn] 500 mg PO DAILY tab 11/29/19 Allergies Allergy/AdvReac Type Severity Reaction Status Date / Time No Known Allergies Allergy Verified 01/04/20 14:35 Review of Systems ROS Statement: Those systems with pertinent positive or pertinent negative responses have been documented in the HPI. ROS Other: All systems not noted in ROS Statement are negative. 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 History of Any Multi-Drug Resistant Organisms: None Reported Past Surgical History: Heart Catheterization With Stent, Hernia Repair, Joint Replacement, Orthopedic Surgery Additional Past Surgical History / Comment(s): heart stents x2, reverse left shoulder replacement, left shoulder surgery (total 3), arthroscopy left knee, rt ankle ORIF, 2-22-16 TOTAL LT KNEE REPLACEMENT, 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 IN FACE-CHEEKS & EYES (JAN 2018) Past Anesthesia/Blood Transfusion Reactions: No Reported Reaction Additional Past Anesthesia/Blood Transfusion Reaction / Comment(s): CLAUSTERPHOBIC Date of Last Stent Placement:: 05/2017 Past Psychological History: No Psychological Hx Reported, Anxiety, Depression Smoking Status: Never smoker Past Alcohol Use History: None Reported Past Drug Use History: None Reported - Past Family History Mother Family Medical History: Dementia Father Family Medical History: Hyperlipidemia, Myocardial Infarction (SD) General Exam - General Exam Comments Initial Comments: GENERAL: Patient is well-developed and well-nourished. Patient is nontoxic and in no acute distress. HEAD: Atraumatic, normocephalic. EYES: Pupils equal round and reactive to light, extraocular movements intact, sclera anicteric, conjunctiva are normal. Eyelids were unremarkable. ENT: TMs normal, nares patent, oropharynx clear without exudates. Moist mucous membranes. NECK: Normal range of motion, supple without lymphadenopathy or JVD. LUNGS: Unlabored respirations. Breath sounds clear to auscultation bilaterally and equal. No wheezes rales or rhonchi. HEART: Regular rate and rhythm without murmurs, rubs or gallops. ABDOMEN: Soft, nontender, normoactive bowel sounds. No guarding, no rebound. No masses appreciated. : Deferred MUSCULOSKELETAL: Normal extremities with adequate strength and normal range of motion, no pitting or edema. No clubbing or cyanosis. NEUROLOGICAL: Patient is alert and oriented x 3. Motor and sensory are also intact. Cranial nerves II through XII grossly intact. Symmetrical smile. Normal speech, normal gait. PSYCH: Normal mood, normal affect. SKIN: Warm, Dry, normal turgor, no rashes or lesions noted. Limitations: no limitations Course Vital Signs 01/04/20 01/04/20 01/04/20 14:32 14:49 15:07 Temperature 98 F Pulse Rate 62 57 L Pulse Rate [ 55 L Apical] Respiratory 18 20 Rate Blood Pressure 105/55 102/67 O2 Sat by Pulse 95 96 Oximetry 01/04/20 01/04/20 01/04/20 15:30 16:00 16:30 Temperature Pulse Rate 55 L 52 L 53 L Pulse Rate [ Apical] Respiratory 16 18 16 Rate Blood Pressure 102/67 126/67 114/60 O2 Sat by Pulse 95 95 95 Oximetry EKG Findings - EKG Comments: EKG Findings:: Sinus bradycardia, otherwise normal ECG, no signs of acute ischemia. Ventricular rate 56, AZ interval 158, QTC 444. Medical Decision Making - Medical Decision Making Patient is 69-year-old male presenting for hypotension as well as feeling lightheaded and nauseous. Blood pressure on arrival was 105/55, rest of vitals were normal. His exam is unremarkable. EKG shows sinus bradycardia at 56 ventricular rate, no other acute process. Lab work shows a stable hemoglobin, normal white count. Creatinine a BUN was slightly elevated from his baseline, troponin and BNP are normal. Urine shows no evidence of infection, trace ketones. I did give patient 1 L of fluids, and his blood pressure did seem to respond well, 126/67, 114/60. I did walk patient around the ER and he has remained asymptomatic. I discussed options of admitting the patient to have cardiology see him tomorrow and to continue with fluids or if he liked, the zhou ent is stable he can go home. Patient agrees to be discharged home. I discussed with patient I feel like his symptoms could be related to dehydration. I recommended continue to increase his water intake. 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 Strict return parameters were discussed the patient and he verbalized understanding. Case discussed with Dr. Campbell. - Lab Data Result diagrams: 01/04/20 14:56 01/04/20 14:56 Lab Results 01/04/20 01/04/20 01/04/20 Range/Units 14:56 14:56 14:56 WBC 7.0 (3.8-10.6) k/uL RBC 5.09 (4.30-5.90) m/uL Hgb 14.3 (13.0-17.5) gm/dL Hct 44.9 (39.0-53.0) % MCV 88.0 (80.0-100.0) fL MCH 28.1 (25.0-35.0) pg MCHC 31.9 (31.0-37.0) g/dL RDW 13.9 (11.5-15.5) % Plt Count 155 (150-450) k/uL Neutrophils % 75 % Lymphocytes % 17 % Monocytes % 4 % Eosinophils % 2 % Basophils % 1 % Neutrophils # 5.3 (1.3-7.7) k/uL Lymphocytes # 1.2 (1.0-4.8) k/uL Monocytes # 0.3 (0-1.0) k/uL Eosinophils # 0.1 (0-0.7) k/uL Basophils # 0.0 (0-0.2) k/uL Sodium 137 (137-145) mmol/L Potassium 4.8 (3.5-5.1) mmol/L Chloride 104 (98-107) mmol/L Carbon Dioxide 29 (22-30) mmol/L Anion Gap 4 mmol/L BUN 32 H (9-20) mg/dL Creatinine 1.55 H (0.66-1.25) mg/dL Est GFR (CKD-EPI)AfAm 52 (>60 ml/min/1.73 sqM) Est GFR (CKD-EPI)NonAf 45 (>60 ml/min/1.73 sqM) Glucose 100 H (74-99) mg/dL Calcium 9.3 (8.4-10.2) mg/dL Total Bilirubin 0.8 (0.2-1.3) mg/dL AST 24 (17-59) U/L ALT 18 (4-49) U/L Alkaline Phosphatase 78 (38-126) U/L Troponin I <0.012 (0.000-0.034) ng/mL NT-Pro-B Natriuret Pep pg/mL Total Protein 6.5 (6.3-8.2) g/dL Albumin 4.0 (3.5-5.0) g/dL Urine Color Urine Appearance (Clear) Urine pH (5.0-8.0) Ur Specific Grants (1.001-1.035) Urine Protein (Negative) Urine Glucose (UA) (Negative) Urine Ketones (Negative) Urine Blood (Negative) Urine Nitrite (Negative) Urine Bilirubin (Negative) Urine Urobilinogen (<2.0) mg/dL Ur Leukocyte Esterase (Negative) Urine RBC (0-5) /hpf Urine WBC (0-5) /hpf Ur Squamous Epith Cells (0-4) /hpf Calcium Oxalate Crystal (None) /hpf Hyaline Casts (0-2) /lpf Urine Mucus (None) /hpf 01/04/20 01/04/20 Range/Units 14:56 14:56 WBC (3.8-10.6) k/uL RBC (4.30-5.90) m/uL Hgb (13.0-17.5) gm/dL Hct (39.0-53.0) % MCV (80.0-100.0) fL MCH (25.0-35.0) pg MCHC (31.0-37.0) g/dL RDW (11.5-15.5) % Plt Count (150-450) k/uL Neutrophils % % Lymphocytes % % Monocytes % % Eosinophils % % Basophils % % Neutrophils # (1.3-7.7) k/uL Lymphocytes # (1.0-4.8) k/uL Monocytes # (0-1.0) k/uL Eosinophils # (0-0.7) k/uL Basophils # (0-0.2) k/uL Sodium (137-145) mmol/L Potassium (3.5-5.1) mmol/L Chloride (98-107) mmol/L Carbon Dioxide (22-30) mmol/L Anion Gap mmol/L BUN (9-20) mg/dL Creatinine (0.66-1.25) mg/dL Est GFR (CKD-EPI)AfAm (>60 ml/min/1.73 sqM) Est GFR (CKD-EPI)NonAf (>60 ml/min/1.73 sqM) Glucose (74-99) mg/dL Calcium (8.4-10.2) mg/dL Total Bilirubin (0.2-1.3) mg/dL AST (17-59) U/L ALT (4-49) U/L Alkaline Phosphatase (38-126) U/L Troponin I (0.000-0.034) ng/mL NT-Pro-B Natriuret Pep 306 pg/mL Total Protein (6.3-8.2) g/dL Albumin (3.5-5.0) g/dL Urine Color Yellow Urine Appearance Cloudy (Clear) Urine pH 6.0 (5.0-8.0) Ur Specific [place] 1.032 (1.001-1.035) Urine Protein 1+ H (Negative) Urine Glucose (UA) Negative (Negative) Urine Ketones Trace H (Negative) Urine Blood Negative (Negative) Urine Nitrite Negative (Negative) Urine Bilirubin Negative (Negative) Urine Urobilinogen 4.0 (<2.0) mg/dL Ur Leukocyte Esterase Negative (Negative) Urine RBC 2 (0-5) /hpf Urine WBC 5 (0-5) /hpf Ur Squamous Epith Cells 1 (0-4) /hpf Calcium Oxalate Crystal Occasional H (None) /hpf Hyaline Casts 74 H (0-2) /lpf Urine Mucus Many H (None) /hpf Disposition Clinical Impression: Hypotension, Lightheadedness, Dehydration Disposition: HOME SELF-CARE Condition: Stable Instructions (If sedation given, give patient instructions): Dehydration (ED) Additional Instructions: Please return to the Emergency Department if symptoms worsen or any other concerns. Follow-up with cardiology as discussed in the next 1- 3 days. Increase water intake. Is patient prescribed a controlled substance at d/c from ED?: No Referrals: Paulino Kamara MD [Primary Care Provider] - 1-2 days Theron Martinez MD [STAFF PHYSICIAN] - 1-2 days
[2020-01-04 15:12] LABS: Basophils % (A) 1 %; Eosinophils # (A) 0.1 k/uL (0-0.7); Eosinophils % (A) 2 %; HCT 44.9 % (39.0-53.0); HGB 14.3 gm/dL (13.0-17.5); Lymphocytes # (A) 1.2 k/uL (1.0-4.8); Lymphocytes % (A) 17 %; MCH 28.1 pg (25.0-35.0); MCHC 31.9 g/dL (31.0-37.0); Mean Platelet Volume 7.3; Monocytes # (A) 0.3 k/uL (0-1.0); Monocytes % (A) 4 %; Neutrophils # (A) 5.3 k/uL (1.3-7.7); Neutrophils % (A) 75 %; Platelet Count 155 k/uL (150-450); RBC 5.09 m/uL (4.30-5.90); RDW 13.9 % (11.5-15.5)
[2020-01-04 15:18] LABS: Calcium 9.3 mg/dL (8.4-10.2); Potassium 4.8 mmol/L (3.5-5.1); Total Bilirubin 0.8 mg/dL (0.2-1.3); Total Protein 6.5 g/dL (6.3-8.2)
[2020-01-04 15:25] LABS: Appearance,Urine Cloudy (Clear); Bilirubin,Urine Negative (Negative); Blood,Urine Negative (Negative); Calcium Oxalate Crystals,Urine Occasional /hpf; Color,Urine Yellow; Glucose,Urine (UA) Negative (Negative); Hyaline Casts,Urine 74 /lpf (0-2); Ketones,Urine Trace (Negative); Leukocyte Esterase,Urine Negative (Negative); Mucus,Urine Many /hpf; Nitrite,Urine Negative (Negative); Protein,Urine 1+ (Negative); RBC,Urine 2 /hpf (0-5); Specific Gravity,Urine 1.032 (1.001-1.035); Squamous Epithelial Cell,Urine 1 /hpf (0-4); WBC,Urine 5 /hpf (0-5)
[2020-01-04 16:36] VITALS: BP 114/60; PULSE 53; RESP 16
== END 2020-01-04 17:00 | disposition home or self-care (01) ==
LOC: EC 14:27
DX: E86.0 Dehydration (principal); I95.9 Hypotension, unspecified; I48.91 Unspecified atrial fibrillation; F41.9 Anxiety disorder, unspecified; F32.9 Major depressive disorder, single episode, unspecified; K21.9 Gastro-esophageal reflux disease without esophagitis; E78.5 Hyperlipidemia, unspecified; I10 Essential (primary) hypertension; M19.90 Unspecified osteoarthritis, unspecified site; N42.9 Disorder of prostate, unspecified; Z79.01 Long term (current) use of anticoagulants; Z79.899 Other long term (current) drug therapy; Z95.5 Presence of coronary angioplasty implant and graft; Z96.612 Presence of left artificial shoulder joint; Z96.652 Presence of left artificial knee joint; Z86.69 Personal history of other diseases of the nervous system and sense organs
CPT/HCPCS: 36415; 80053; 81001; 83880; 84484; 85025; 93005; 96360; 96361; 99284

== ENCOUNTER → 2020-01-11 | Outpatient (CLI) | payer MEDICARE ==
[2020-01-11 12:29] LABS: HCT 43.9 % (39.0-53.0); MCH 29.2 pg (25.0-35.0); MCHC 31.9 g/dL (31.0-37.0); MCV 91.6 fL (80.0-100.0); Mean Platelet Volume 7.5; Platelet Count 147 k/uL (150-450); RBC 4.79 m/uL (4.30-5.90); RDW 13.8 % (11.5-15.5); WBC 4.9 k/uL (3.8-10.6)
[2020-01-11 12:42] LABS: Magnesium 2.4 mg/dL (1.6-2.3)
== END | disposition home or self-care (01) ==
LOC: LABPAT 10:56
PROVIDERS: ATTEND Internal Medicine Clinical Cardiac Electrophysiology
DX: Z01.818 Encounter for other preprocedural examination (principal); I10 Essential (primary) hypertension
CPT/HCPCS: 36415; 82565; 83735; 84520; 85027

== ENCOUNTER 2020-01-20 10:45 | Day surgery (SDC) | payer MEDICARE ==
[2020-01-18 09:46] VITALS: BMI 29.0
[~2020-01-20 10:45] MED LIST changes: -ALPRAZolam 0.25 MG TAB PO PRN; -ALPRAZolam 0.5 MG TAB PO PRN; -ASPIRIN 325 MG TAB PO STA; -ATORVASTATIN 80 MG TAB PO STA; +LACTATED RINGERS 1,000 ML IV SCH; -NITROGLYCERIN SL TABS 0.4 MG TAB SUBLINGUAL PRN; +SODIUM CHLORIDE 0.9% 1,000 ML IV SCH; -SODIUM CHLORIDE 0.9% 1,000 ML in EMPTY BAG 1 BAG IV ONE
[2020-01-20] MEDS ORDERED: SUCCINYLCHOLINE CHLORIDE 100 MG/5 ML SYR IV ONE (13:48)
[2020-01-20] MEDS ORDERED: ONDANSETRON 4 MG/2 ML VIAL ONE (13:48)
[2020-01-20] MEDS ORDERED: IV FLUID CONTINUATION 1,000 ML IV ONE (13:48)
[2020-01-20] MEDS ORDERED: ISOPROTERENOL 250 MCG/1.25 ML SYR IV ONE (13:48)
[2020-01-20] MEDS ORDERED: ePHEDrine SULFATE/0.9% NACL/PF 50 MG/5 ML SYRINGE IV ONE (13:48)
[2020-01-20] MEDS ORDERED: fentaNYL (PF) 50 MCG/ML 2 ML AMP ONE (13:48)
[2020-01-20] MEDS ORDERED: PROTAMINE SULFATE 10 MG/ML 5 ML VIAL IV ONE (13:48)
[2020-01-20] MEDS ORDERED: LIDOCAINE 1% INJ 10MG/ML (20 ML MDV) ONE ×2 (13:48→14:43)
[2020-01-20] MEDS ORDERED: PROPOFOL 10 MG/ML 20 ML VIAL IV ONE (13:48)
[2020-01-20] MEDS ORDERED: MIDAZOLAM 2 MG/2 ML VIAL ONE (13:48)
[2020-01-20] MEDS ORDERED: HEPARIN SOD,PORK IN 0.45% NACL 25,000 UNIT in 0.45% NACL 1 250ML.BAG IV ONE (14:45)
[2020-01-20] MEDS ORDERED: LIDOCAINE 1% INJ 10MG/ML (20 ML MDV) SQ ONE (14:45)
[2020-01-20] MEDS ORDERED: HEPARIN SODIUM (1,000 UNIT/ML) 1,000 UNIT in SODIUM CHLORIDE 0.9% 1,000 ML IRRIGATION ONE (16:42)
[2020-01-20] MEDS ORDERED: IOPAMIDOL-370 100ML BTL INJ ONE (17:00)
[2020-01-20] MEDS ORDERED: HYDROcodone/APAP 5-325MG 1 EACH TAB PO PRN (17:55)
[2020-01-20] MEDS ORDERED: ACETAMINOPHEN TAB 325 MG TAB PO PRN (17:55)
--- NOTE | 2020-01-20 18:08 | P.EPPROC ---
- EP Procedure Note Electrophysiology Procedure Note: Diagnosis Atrial fibrillation, symptomatic, refractory to therapy paroxysmal Result No left atrial appendage mass seen on intracardiac echo Successful pulmonary vein isolation of all veins using cryo-ablation Complete entrance block in all 4 veins confirmed No evidence for phrenic nerve injury Linear ablation along the septum on the left side Esophageal deflection YES Electrical cardioversion with a synchronized shock across the chest NO Procedure details Patient was brought to the EP lab in a fasting state. Written informed consent was obtained prior to the procedure. Procedure performed under general anesthesia After initial muscle relaxant use, muscle relaxants were not given thereafter in order to assess phrenic nerve during procedure. Patient prepped and draped as per protocol Full cryo-set up with standard preparation of the cryoablation tools done. Femoral Venous access obtained on the right and left groins Venous and arterial Sheaths placed. Diagnostic catheters for the high right atrium, phrenic nerve stimulation and pacing, His bundle, RV and coronary sinus placed Intracardiac echo catheter placed. Long sheath placed in the right atrium Left and right transseptal catheterization performed under intracardiac echo guidance. Intravenous heparin with aCT above 300 Later, catheter positioning and balloon positioning in the left atrium, under intracardiac echo guidance Diagnostic EP study with Drug infusion Coronary sinus pacing and recording Baseline measurements sinus cycle length 802 ms, MT 114, QRS 110, QT 433 AH 67 and HV 37 Atrial pacing performed from the high right atrium and the coronary sinus RV pacing Transseptal catheterization performed RA pressure 16/9/12 LA pressure 24/9/16 Transseptal catheterization performed with standard sheath. The cryoablation sheath was then placed with an over the wire exchange without any acute complications. All 4 pulmonary veins were isolated in the following sequence: Left superior followed by left inferior followed by right superior followed by right inferior The cryo-ablation balloon was placed at the os of each vein 1.5 mL of IV dye was injected to confirm an occluded vein Goal during cryoablation was to achieve complete occlusion of the pulmonary vein, achieve -30 degrees C at 30 seconds and achieve -40 degrees C at 60 seconds and a time to effect of less than 60-90 seconds, . If not the balloon was repositioned to obtain this result After completion of Cryoblation with durations from 180-240 seconds, entrance block was confirmed with the Attain circular catheter in a roving fashion around the antrum of the pulmonary veins Phrenic nerve pacing was performed from the SVC, right innominate vein area and diaphragm voltage was monitored. Diaphragmatic contractions were also monitored manually for strength of contraction. Parameter goals for each cryo freeze Complete occlusion of the appropriate vein -30 degrees C by 30 seconds -40 degrees C by 60 seconds Minimum between minus 40-55 degrees C Thaw time greater than 10 seconds Balloon visualized by intracardiac echo The esophagus was intubated. Esophageal Temperature monitoring with a CIRCA catheter formed. Esophageal deflection for hypothermia of the esophagus below 30 degrees C Left superior pulmonary vein Complete isolation, entrance block Left inferior pulmonary vein Complete isolation, entrance block Right superior pulmonary vein, during phrenic nerve pacing Complete isolation, entrance block Right inferior pulmonary vein, during phrenic nerve pacing Complete isolation, entrance block At the end of the procedure the Achieve catheter was once again used to check for entrance block Phrenic nerve stimulation was performed to confirm diaphragmatic stimulation the end of the procedure Cine fluoroscopy was performed at the very end of the procedure to confirm movement of both diaphragms with inspiration and expiration Thereafter and RF ablation catheter was placed. Through the electronic mapping was performed the veins are completely isolated at the mental level Fractionated electrograms were noted in the septum. Septal ablation was performed the linear ablation was performed from the roof of the right superior vein along the septum inferiorly to the right inferior vein cutting across fractionated signals. Thereafter no atrial fibrillation was induced At the end of the procedure the patient was extubated Heparin was reversed Venous sheaths were removed and hemostasis assured Procedures performed (PVI - CRYO Ablation) Diagnostic EP study CS pacing and recording Left and right transseptal catheterization 3D mapping Intracardiac echocardiography Pulmonary vein isolation with transseptal and comprehensive EPS, [id number] Linear ablation, left atrium, +[id number] Drug Infusion +[id number]
--- NOTE | 2020-01-20 18:11 | P.PRLE ---
RE: Flip Cardoza Dear Paulino Mr. Flip Cardoza underwent an A. fib ablation successfully with complete isolation of all 4 pulmonary veins as well as linear ablation along the septum. We could not induce any further atrial fibrillation despite high-dose Isuprel and burst stimulation in the atrium At this time I'm asking him to stop amiodarone and he must continue ELIQUIS Thank you for entrusting me with the care of the patient Warm regards Sincerely Theron Martinez
[2020-01-20] MEDS ORDERED: ACETAMINOPHEN IV (For NPO) 1,000 MG in EMPTY BAG 1 BAG IVPB ONE (18:30)
[2020-01-20] MEDS ORDERED: SODIUM CHLORIDE 0.9% 1,000 ML IV ONE (18:34)
[2020-01-20 20:18] VITALS: RESP 18
[2020-01-20] MEDS: APIXABAN 5 MG TAB PO SCH (20:35)
[2020-01-20] MEDS: METOPROLOL TARTRATE 25 MG TAB PO SCH (20:35)
[2020-01-20] MEDS ORDERED: FAMOTIDINE 20 MG TAB PO SCH (21:00)
[2020-01-20] MEDS ORDERED: ATORVASTATIN 80 MG TAB PO SCH (21:00)
--- NOTE | 2020-01-21 07:50 | P.DS ---
Providers Attending physician: Theron Martinez Primary care physician: [facility] Course: Patient is doing well. He has a sore throat and he does have some pleuritic discomfort in the chest when he takes deep breath. His systolic murmur over the precordium. However looks very comfortable he's been ambulating around no problems at all No shortness of breath no dizziness no lightheadedness rhythm is normal on telemetry His grandson healed well no tenderness no masses I explained the post procedure instructions him Emphasized the importance of continuing ELIQUIS I have stopped amiodarone completely He said he was not taking candesartan at home to last him to restart candesartan at 8 mg a day and we will adjust dose in follow-up Vitals are stable. He's afebrile 98.1F pulse rate in the 80s blood pressure 144/80 mmHg Breath sounds are clear no rhonchi no crackles Systolic murmur over the precordium No JVD no lower extremity deep abdomen soft Groins of healed well no hematoma no masses minimal tenderness Impression Paroxysmal symptomatic atrial fibrillation Status post pulmonary vein isolation and linear ablation along the left atrial septum Following that a detailed the study is performed on high-dose Isuprel and atrial fibrillation could not be induced Hypertension CAD Suggest Continue ELIQUIS 5 mg twice daily, continue aspirin, continue atorvastatin Stop amiodarone Continue antihypertensive therapy Continue beta blockers Follow-up in the office Dr. Martinez in about 7-10 days Plan - Discharge Summary Discharge Rx Participant: No New Discharge Prescriptions: Continue Multivitamins, Thera [Multivitamin (formulary)] 1 tab PO DAILY Tamsulosin [Flomax] 0.4 mg PO DAILY Fish Oil/Dha/Epa [Fish Oil 1,200 mg Fish Oil] 1 cap PO DAILY Famotidine 40 mg PO HS Aspirin 81 mg PO DAILY #30 chew Atorvastatin [Lipitor] 80 mg PO HS #30 tab Nitroglycerin Sl Tabs [Nitrostat] 0.4 mg SUBLINGUAL Q5M PRN #25 tab PRN Reason: Chest Pain Escitalopram [Lexapro] 10 mg PO DAILY Aclidinium [place] [Tudorza Pressair] 1 puff INHALATION RT-Q12H Albuterol Inhaler [Ventolin Hfa Inhaler] 2 puff INHALATION RT-Q6H PRN PRN Reason: Shortness Of Breath Candesartan Cilexetil [Atacand] 16 mg PO DAILY Dicyclomine [Bentyl] 20 mg PO TID Pantoprazole Sodium [Protonix] 40 mg PO DAILY Ranolazine [Ranexa] 500 mg PO BID Sildenafil Citrate [Viagra] 100 mg PO DAILY PRN PRN Reason: ED Magnesium 200 mg PO DAILY Apixaban [Eliquis] 5 mg PO BID #90 tab Metoprolol Tartrate 25 mg PO BID #60 tab Discontinued Amiodarone [Cordarone] 200 mg PO BID #60 tablet Discharge Medication List Multivitamins, Thera [Multivitamin (formulary)] 1 tab PO DAILY 05/10/15 [History] Tamsulosin [Flomax] 0.4 mg PO DAILY 05/10/15 [History] Famotidine 40 mg PO HS 05/22/17 [History] Fish Oil/Dha/Epa [Fish Oil 1,200 mg Fish Oil] 1 cap PO DAILY 05/22/17 [History] Aspirin 81 mg PO DAILY #30 chew 05/27/17 [Rx] Atorvastatin [Lipitor] 80 mg PO HS #30 tab 05/27/17 [Rx] Nitroglycerin Sl Tabs [Nitrostat] 0.4 mg SUBLINGUAL Q5M PRN #25 tab 05/27/17 [Rx] Escitalopram [Lexapro] 10 mg PO DAILY 07/27/18 [History] Aclidinium [place] [Tudorza [place]] 1 puff INHALATION RT-Q12H 11/27/19 [History] Albuterol Inhaler [Ventolin Hfa Inhaler] 2 puff INHALATION RT-Q6H PRN 11/27/19 [History] Candesartan Cilexetil [Atacand] 16 mg PO DAILY 11/27/19 [History] Dicyclomine [Bentyl] 20 mg PO TID 11/27/19 [History] Magnesium 200 mg PO DAILY 11/27/19 [History] Pantoprazole Sodium [Protonix] 40 mg PO DAILY 11/27/19 [History] Ranolazine [Ranexa] 500 mg PO BID 11/27/19 [History] Sildenafil Citrate [Viagra] 100 mg PO DAILY PRN 11/27/19 [History] Apixaban [Eliquis] 5 mg PO BID #90 tab 11/28/19 [Rx] Metoprolol Tartrate 25 mg PO BID #60 tab 11/29/19 [Rx] Follow up Appointment(s)/Referral(s): Theron Martinez MD [STAFF PHYSICIAN] - 1 Week Activity/Diet/Wound Care/Special Instructions: Post EP study - Ablation instructions 1. Keep access sites dry for 2 days. 2. No heavy lifting or straining for 2 days. 3. Avoid bending the hips repeatedly for 2 days. 4. You may go up and down stairs slowly Call if the following is noted 1. Bleeding, increasing swelling or pain at the access sites. 2. Increasing chest discomfort, especially upon taking a deep breath. 3. Increasing shortness of breath, at rest or with exertion. 4. Undue cough / phlegm 5. Difficulty or pain while swallowing. 6. Pain or change in color in the extremities. 7. Fever, chills, rigors. 8. Increasing headache or neurologic symptoms. 9. Dizziness, fainting, palpitations Stop amiodarone Continue all other medications and continue ELIQUIS Discharge Disposition: HOME SELF-CARE
[2020-01-21] MEDS ORDERED: COLCHICINE 0.6 MG EACH PO SCH (09:00)
[2020-01-21] MEDS ORDERED: TAMSULOSIN 0.4 MG CAP.ER.24H PO SCH (09:00)
[2020-01-21] MEDS ORDERED: ASPIRIN 81 MG PO SCH (09:00)
[2020-01-21] MEDS ORDERED: LOSARTAN 50 MG TAB PO SCH (09:00)
[2020-01-21 09:07] VITALS: BP 119/74; PULSE 89; TEMP 98.3
[2020-01-21] MEDS: METOPROLOL TARTRATE 25 MG TAB PO SCH (09:07)
[2020-01-21] MEDS: APIXABAN 5 MG TAB PO SCH (09:08)
== END 2020-01-21 14:30 | disposition home or self-care (01) ==
LOC: CATHEP 10:45 → 3NCARDOBS 17:13 → CATHEP 01-21 14:30
PROVIDERS: ATTEND Internal Medicine Clinical Cardiac Electrophysiology
DX: I48.0 Paroxysmal atrial fibrillation (principal); I25.10 Atherosclerotic heart disease of native coronary artery without angina pectoris; I49.5 Sick sinus syndrome; I47.1 Supraventricular tachycardia; I10 Essential (primary) hypertension; J44.9 Chronic obstructive pulmonary disease, unspecified; E78.5 Hyperlipidemia, unspecified; G43.909 Migraine, unspecified, not intractable, without status migrainosus; K21.9 Gastro-esophageal reflux disease without esophagitis; Z95.5 Presence of coronary angioplasty implant and graft; Z79.01 Long term (current) use of anticoagulants; Z79.82 Long term (current) use of aspirin; Z79.899 Other long term (current) drug therapy; Z98.890 Other specified postprocedural states; Z82.49 Family history of ischemic heart disease and other diseases of the circulatory system
CPT/HCPCS: 85347; 93623; 93662; 93613; 93656; 93657; C1769 ×4; C1894 ×2; C1730 ×2; C1759; C1893; C1733; C1766; C1732; J2250; J2720; J2405; J2001; J3010; J1644 ×2; J0330; J2704; Q9967

== ENCOUNTER → 2020-03-02 | Outpatient (CLI) | payer MEDICARE ==
[2020-03-02 14:40] LABS: HCT 41.9 % (39.0-53.0); HGB 13.6 gm/dL (13.0-17.5); MCH 28.6 pg (25.0-35.0); MCHC 32.6 g/dL (31.0-37.0); MCV 87.8 fL (80.0-100.0); Mean Platelet Volume 7.3; Platelet Count 143 k/uL (150-450); RBC 4.77 m/uL (4.30-5.90); RDW 13.7 % (11.5-15.5)
[2020-03-02 14:52] LABS: Potassium 4.7 mmol/L (3.5-5.1)
== END | disposition home or self-care (01) ==
LOC: LABPAT 13:44
PROVIDERS: ATTEND Internal Medicine Interventional Cardiology
DX: Z01.818 Encounter for other preprocedural examination (principal); I25.10 Atherosclerotic heart disease of native coronary artery without angina pectoris
CPT/HCPCS: 36415; 80051; 82565; 84520; 85027

== ENCOUNTER → 2020-03-13 | Outpatient (CLI) | payer MEDICARE | END | disposition home or self-care (01) | LOC: LABWHC1 10:06 | PROVIDERS: ATTEND Internal Medicine Interventional Cardiology | DX: Z20.828 Contact with and (suspected) exposure to other viral communicable diseases (principal) | CPT/HCPCS: U0003; C9803 ==

== ENCOUNTER → 2020-03-21 | Day surgery (SDC) | payer MEDICARE ==
[2020-03-10 09:51] VITALS: BMI 29.7
[~2020-03-21] MED LIST changes: +ALPRAZolam 0.25 MG TAB PO PRN; +ALPRAZolam 0.5 MG TAB PO PRN; +ASPIRIN 325 MG TAB PO ONE; +HYDROmorphone 0.5 MG/0.5 ML SYRINGE IVP ONE; +IOPAMIDOL-370 100ML BTL INJ ONE; -LACTATED RINGERS 1,000 ML IV SCH; +LIDOCAINE 1% INJ 10MG/ML (20 ML MDV) ONE; +LIDOCAINE 1% INJ 10MG/ML (20 ML MDV) SQ ONE; +MIDAZOLAM 2 MG/2 ML VIAL IV ONE; +NITROGLYCERIN SL TABS 0.4 MG TAB SUBLINGUAL PRN; +SODIUM CHLORIDE 0.9% 1,000 ML in EMPTY BAG 1 BAG IV ONE
[2020-03-21 06:58] VITALS: RESP 18; TEMP 97.9
[2020-03-21 07:05] LABS: Basophils # (A) 0.1 k/uL (0-0.2); Basophils % (A) 1 %; Eosinophils # (A) 0.3 k/uL (0-0.7); Eosinophils % (A) 4 %; HGB 15.5 gm/dL (13.0-17.5); Lymphocytes # (A) 1.4 k/uL (1.0-4.8); Lymphocytes % (A) 22 %; MCH 28.8 pg (25.0-35.0); MCV 87.4 fL (80.0-100.0); Mean Platelet Volume 7.4; Monocytes # (A) 0.3 k/uL (0-1.0); Monocytes % (A) 5 %; Neutrophils % (A) 66 %; Platelet Count 169 k/uL (150-450); RBC 5.38 m/uL (4.30-5.90); RDW 13.3 % (11.5-15.5); WBC 6.1 k/uL (3.8-10.6)
--- NOTE | 2020-03-21 08:44 | CC ---
CARDIAC CATHETERIZATION REPORT DATE OF SERVICE: March 21, 2020. PROCEDURE: Left heart catheterization and coronary angiography. PERFORMED BY: Dr. Josefa Cabello. Moderate conscious sedation time was 26 minutes. Patient was administered Versed. Oxygen saturation, hemodynamics and EKG were monitored closely. CLINICAL INFORMATION: Mr. Flip Cardoza is a 69-year-old gentleman with history of CAD, hypertension and hypercholesterolemia. He also has paroxysmal atrial fibrillation, underwent pulmonary vein isolation before. Because of symptoms strongly suggestive of angina, Dr. Martinez advised coronary angiography after due discussion. I met the patient this morning, reviewed with him the rationale, risks, benefits, options. He understood all details and wished to proceed with the procedure. In May 2017 I performed stenting of a mid LAD with 2 drug-eluting stents and this was patent in 2019. He has a right dominant system with a noncritical mild to moderate irregularities in both circumflex and RCA. PROCEDURE NOTE: Under local anesthesia and strict aseptic precautions, a 6-Indian introducer was placed in the right femoral artery. Using standard Chao catheters, I performed coronary angiography and the same right catheter was used to check LV pressure but LV gram was not performed. The sheath was taken out and a Perclose device used to secure hemostasis. However, the suture on the Perclose broke and therefore I applied some manual pressure and FemoStop was applied. Excellent hemostasis was secured. Patient tolerated the procedure well without complications. CARDIAC CATHETERIZATION FINDINGS: The left ventricular end-diastolic pressure was 7 to 8 mmHg without any gradient across the aortic valve. CORONARY ANGIOGRAPHY FINDINGS: RIGHT CORONARY ARTERY: Technically dominant vessel, no significant disease, minor irregularities. It distally bifurcates into large PDA and PLV, both of which supply a sizable amount of myocardium. Minor irregularities noted. No significant disease. LEFT MAIN CORONARY ARTERY: Short patent disease-free vessel that bifurcates into LAD and circumflex. LEFT ANTERIOR DESCENDING CORONARY ARTERY: Good caliber vessel extends along the anterior wall. The midportion where the vessel was stented is widely patent with remarkably good flow. The diagonal that was jailed when the stent was deployed, also has a very good flow without significant disease. The LAD therefore is free of significant disease. Distal branches have minor irregularities. LEFT POSTERIOR CIRCUMFLEX CORONARY ARTERY: Nondominant vessel gives off a high first obtuse marginal, which has a 50% lesion and a good-sized second obtuse marginal that has minor irregularities and then there is a groove branch which has mild diffuse disease. The circumflex therefore has noncritical [id number] irregularities but the main circumflex marginal is widely patent without any obstructive disease. LEFT VENTRICULOGRAM: Left ventriculogram was not performed. FINAL IMPRESSION: This patient has a widely patent LAD at the site of previous stenting. No restenosis is noted. He has a right-dominant system without significant disease in RCA. Circumflex is nondominant, gives off a large obtuse marginal free of significant disease. The filling pressures are normal and there is no gradient across the aortic valve. RECOMMENDATION: I am recommending continued medical therapy with risk factor modification. No percutaneous intervention is necessary. Findings were reviewed with the patient and . I expect he will be discharged later on today if he remains stable and will see Dr. Martinez next week in the office. MMORIANAL / KANWALN: [id number] /
[2020-03-21 18:13] VITALS: PULSE 68
[2020-03-21 18:14] VITALS: BP 128/74
== END ==
LOC: CATHCVL 06:13
PROVIDERS: ATTEND Internal Medicine Interventional Cardiology
DX: I25.110 Atherosclerotic heart disease of native coronary artery with unstable angina pectoris (principal); I49.5 Sick sinus syndrome; I48.0 Paroxysmal atrial fibrillation; I10 Essential (primary) hypertension; I47.1 Supraventricular tachycardia; E78.5 Hyperlipidemia, unspecified; J44.9 Chronic obstructive pulmonary disease, unspecified; Z79.82 Long term (current) use of aspirin; Z79.899 Other long term (current) drug therapy; Z79.01 Long term (current) use of anticoagulants; Z95.5 Presence of coronary angioplasty implant and graft; Z72.0 Tobacco use; Z82.49 Family history of ischemic heart disease and other diseases of the circulatory system; E78.00 Pure hypercholesterolemia, unspecified
CPT/HCPCS: 93458; 85025; C1769 ×3; C1894; C1760; J2250; J2001; J1170; Q9967

== ENCOUNTER 2020-08-07 11:09 | Day surgery (SDC) | payer MEDICARE ==
[2020-08-03 10:55] VITALS: BMI 30.3
[~2020-08-07 11:09] MED LIST changes: -ALPRAZolam 0.25 MG TAB PO PRN; -ALPRAZolam 0.5 MG TAB PO PRN; -ASPIRIN 325 MG TAB PO ONE; -HYDROmorphone 0.5 MG/0.5 ML SYRINGE IVP ONE; -IOPAMIDOL-370 100ML BTL INJ ONE; -LIDOCAINE 1% INJ 10MG/ML (20 ML MDV) ONE; -LIDOCAINE 1% INJ 10MG/ML (20 ML MDV) SQ ONE; -MIDAZOLAM 2 MG/2 ML VIAL IV ONE; -NITROGLYCERIN SL TABS 0.4 MG TAB SUBLINGUAL PRN; -SODIUM CHLORIDE 0.9% 1,000 ML in EMPTY BAG 1 BAG IV ONE
[2020-08-07] MEDS ORDERED: SODIUM CHLORIDE 0.9% 500 ML 500 ML IV ONE (11:35)
[2020-08-07 13:03] VITALS: PULSE 67; RESP 16; TEMP 98.2
[2020-08-07 16:05] VITALS: BP 137/66
--- NOTE | 2020-08-07 17:27 | P.EPPROC ---
- EP Procedure Note Electrophysiology Procedure Note: Diagnosis Recurrent dizziness and presyncope Twelve-lead EKG shows sinus rhythm normal heart rate 62 beats a minute Normal MO interval narrow QRS normal ST segments Tilt table test a protocol Baseline blood pressure 162/77 mmHg, Baseline heart rate 65 beats a minute Patient was tilted upright at [facility] degrees per protocol There was a steady slow decrease in his blood pressure over the next 40 minutes The lowest blood pressure recorded was 89/60 mmHg As his blood pressure fell below 110 mmHg he felt nauseous, dizzy, blurred vision, he saw sparkles in his vision is foggy and cloudy with a yellow below He felt weak When he was laid flat his blood pressure improved to 226/74 mmHg. No change in heart rate Impression Normal twelve-lead EKG Orthostatic hypotension syndrome with a gradual progressive decline in blood pressure, symptoms
== END 2020-08-07 14:35 | disposition home or self-care (01) ==
LOC: CATHEP 11:09
PROVIDERS: ATTEND Internal Medicine Clinical Cardiac Electrophysiology
DX: I95.1 Orthostatic hypotension (principal); I25.10 Atherosclerotic heart disease of native coronary artery without angina pectoris; I49.5 Sick sinus syndrome; I47.1 Supraventricular tachycardia; I10 Essential (primary) hypertension; E78.5 Hyperlipidemia, unspecified; I48.0 Paroxysmal atrial fibrillation; J44.9 Chronic obstructive pulmonary disease, unspecified; Z72.0 Tobacco use; Z95.5 Presence of coronary angioplasty implant and graft; Z20.822 Contact with and (suspected) exposure to COVID-19; Z79.899 Other long term (current) drug therapy; Z79.82 Long term (current) use of aspirin; Z79.01 Long term (current) use of anticoagulants
CPT/HCPCS: 87635; 93660

== ENCOUNTER → 2022-01-31 | Outpatient (CLI) | payer MEDICARE ==
--- NOTE | 2022-02-01 11:22 | MR ---
EXAMINATION TYPE: MR cervical spine wo con DATE OF EXAM: 01/31/2022 COMPARISON: None HISTORY: 71-year-old male M50.00, Neck pain, ddd with myelopathy TECHNIQUE: Multiplanar, multisequence images of the cervical spine were acquired without contrast. FINDINGS: There is some lobulated mucosal thickening along the floor the left maxillary sinus. No craniocervical junction abnormality, predental space widening, or prevertebral soft tissue swellin g. There is degenerative change of the C1 dens articulation with associated effusion. There are moder ate multilevel disc degenerative change with desiccated, narrowed, and bulging discs throughout. Facet and uncovertebral joint arthropathy is present throughout. There is trace degenerative grade 1 retrolisthesis C4-C5. Trace degenerative grade 1 anterolisthesis C5-C6 and C7-T1. At C2-C3, there is a disc bulge with uncovertebral joint and facet arthropathy. Changes result in mod erate bilateral neuroforaminal narrowing. No significant spinal canal stenosis. At C3-C4, broad-based disc osteophyte complex with hypertrophic facet and uncovertebral joint arthrop athy. Changes result in severe right and moderate to severe left neural foraminal stenosis. Mild over all narrowing of the spinal canal. At C4-C5, trace grade 1 retrolisthesis, broad-based disc osteophyte complex with hypertrophic facet a nd uncovertebral joint arthropathy. Changes result in severe bilateral neuroforaminal stenosis and mi ld to moderate overall narrowing of the spinal canal. There is abutment of both the dorsal and ventra l cord without significant cord flattening. At C5-C6, trace grade 1 anterolisthesis. Hypertrophic facet and uncovertebral joint arthropathy. Disc osteophyte complex eccentric toward the left. Changes result in mild overall narrowing of the spinal canal. However, there is severe left and [id number] right neuroforaminal stenosis. At C6-C7, broad-based disc osteophyte complex with uncovertebral joint and facet arthropathy. Changes result in severe left and mild right neural foraminal stenosis. Disc osteophyte complex impresses on the ventral thecal sac mildly narrowing the spinal canal. No significant spinal canal stenosis. At C7-T1, hypertrophic facet arthropathy. Changes contribute to moderate left and mild right neurofor aminal stenosis. Degenerative grade 1 anterolisthesis. No spinal canal stenosis. Moderate degenerative disc disease with bulging discs noted at T1-T2 and T2-T3 as well without signif icant spinal canal stenosis. Facet arthropathy contributes to moderate left and severe right neuroforaminal stenosis at T1-T2, mod erate on the right at T2-T3. No suspicious bone marrow replacement. Normal course and signal intensity of the cervical spinal cord. IMPRESSION: 1. Moderate to advanced multilevel spondylotic change. Trace degenerative grade 1 spondylolisthesis C 4-C5, C5-C6, C7-T1. 2. Disc osteophyte complexes mildly narrow the spinal canal at multiple levels. More mild to moderate narrowing of the spinal canal at C4-C5 with abutment of both the dorsal and ventral cord. No cord co mpression or myelopathic cord signal change. 3. Variable bilateral neuroforaminal stenoses at outlined above. Severe at multiple levels.
== END | disposition home or self-care (01) ==
LOC: RADMRIMAIN 11:17
PROVIDERS: ATTEND Psychiatry & Neurology Neurology
DX: M51.04 Intervertebral disc disorders with myelopathy, thoracic region (principal); M50.03 Cervical disc disorder with myelopathy, cervicothoracic region; M47.13 Other spondylosis with myelopathy, cervicothoracic region; M43.12 Spondylolisthesis, cervical region; M48.02 Spinal stenosis, cervical region; M99.72 Connective tissue and disc stenosis of intervertebral foramina of thoracic region
CPT/HCPCS: 72141

== ENCOUNTER → 2022-10-30 | Outpatient (CLI) | payer MEDICARE ==
--- NOTE | 2022-10-31 08:49 | MR ---
EXAMINATION TYPE: MR lumbar spine wo con DATE OF EXAM: 10/30/2022 7:05 AM COMPARISON: None. CLINICAL INDICATION: Male, 72 years old with history of M54.16; TECHNIQUE: Multi planar, multi sequence imaging was performed utilizing: T1-weighted, T2-weighted, a nd turbo inversion recovery imaging of the lumbar spine. IV Contrast: None. FINDINGS: Alignment: The lumbar vertebral bodies have preserved heights with grade 1 anterolisthesis of L4 on L 5. Cord: The conus medullaris and the distal spinal cord appear unremarkable with regards to their signa l intensity and morphology. Bones/Discs: Multilevel degeneration changes are seen throughout the spine with osteophyte formation, Schmorl's nodes, Modic endplate changes. There is mild reactive bony edema involving the L2 and L3 v ertebral bodies adjoining endplates. T12-L1: Disc bulge and facet joint arthropathy result in mild spinal canal and mild to moderate bilat eral neural foraminal stenosis. L1-L2: Disc bulge and facet joint arthropathy result in moderate spinal canal and moderate bilateral neural foraminal stenosis. L2-L3: Disc bulge with superimposed left central and left subarticular disc extrusion (Series 201 jeannine ge 9 and series 601 image 20)and facet joint arthropathy result in severe spinal canal stenosis with cauda equina bunching. There is moderate to severe right bilateral neural foraminal stenosis, left gr eater than right.. L3-L4: Disc bulge and facet joint arthropathy result in mild spinal canal and moderate to severe bila teral neural foraminal stenosis. L4-L5: Disc uncovering from grade 1 anterolisthesis and facet joint arthropathy with mild spinal augusta l stenosis and right and moderate left bilateral neural foraminal stenosis. L5-S1: Disc bulge and facet joint arthropathy result in mild spinal canal and severe bilateral neural foraminal stenosis. No significant spinal canal or neural foraminal stenosis in the remainder of the visualized levels. Other findings: None. IMPRESSION: 1. L2-L3 left central and subarticular disc extrusion which results in severe spinal canal stenosis with bunching of the cauda equina. 2. Moderate spinal canal stenosis at L1-L2 secondary disc bulge and facet joint arthropathy. 3. Varying degrees of neural foraminal stenosis throughout spine as described above and worse at L5- S1 bilaterally L4-L5 on the right and L2-L3 bilaterally
== END | disposition home or self-care (01) ==
LOC: RADMRIMAIN 06:09
PROVIDERS: ATTEND Family Medicine
DX: M51.16 Intervertebral disc disorders with radiculopathy, lumbar region (principal); M99.73 Connective tissue and disc stenosis of intervertebral foramina of lumbar region; M47.26 Other spondylosis with radiculopathy, lumbar region
CPT/HCPCS: 72148

== ENCOUNTER 2024-01-09 11:58 | Day surgery (SDC) | payer MEDICARE ==
[2024-01-09 13:06] VITALS: RESP 16; TEMP 97.3
[2024-01-09] MEDS: LACTATED RINGERS 1,000 ML IV SCH (13:06)
[2024-01-09] MEDS: IV FLUID CONTINUATION 1,000 ML IV ONE (13:11)
[2024-01-09] MEDS ORDERED: LIDOCAINE 1% INJ 10MG/ML (20 ML MDV) ONE (14:11)
[2024-01-09] MEDS ORDERED: PROPOFOL 10 MG/ML 20 ML VIAL IV ONE (14:11)
--- NOTE | 2024-01-09 14:30 | P.PCN ---
Date of Procedure: 01/09/24 Procedure(s) Performed: BRIEF HISTORY: Patient is a 73-year-old pleasant white meat scheduled for an elective colonoscopy as a part of being for colon cancer. PROCEDURE PERFORMED: Colonoscopy with biopsy PREOPERATIVE DIAGNOSIS: Screening for colon cancer. IV sedation per Anesthesia. PROCEDURE: After informed consent was obtained, the patient, was brought into the endoscopy unit. IV sedation was administered by Anesthesia under continuous monitoring. Digital rectal examination was normal. Initially the Olympus CF-160 flexible video colonoscope was then inserted in the rectum, gradually advanced into the cecum without any difficulty. Careful examination was performed as the scope was gradually being withdrawn. Ileocecal valve and the appendiceal orifice were visualized and appeared normal. Prep was excellent. Mucosa of the cecum, ascending colon appeared normal. In the transverse colon there was a 4 mm sessile polyp removed by cold biopsy. In the descending colon there was a 3 mm polyp that was removed by cold biopsy. Rest of the, transverse colon, descending colon, sigmoid colon, and rectum appeared normal. Retroflexion was performed in the rectum and no lesions were seen. The patient tolerated the procedure well. IMPRESSION: 4 mm transverse colon polyp status post cold biopsy 3 mm descending colon polyp status post cold biopsy Scattered sigmoid diverticulosis RECOMMENDATIONS: Findings of this examination were discussed with the patient as well as his family. He was advised to follow-up with the biopsy results. If the biopsy reveals adenoma he can have repeat colonoscopy in 5 years..
[2024-01-09 14:47] VITALS: BP 129/68; PULSE 70
== END 2024-01-09 15:09 | disposition home or self-care (01) ==
LOC: ORWHC2ENDO 11:58
PROVIDERS: ATTEND Internal Medicine Gastroenterology
CPT/HCPCS: 45380; 88305

== ENCOUNTER 2024-09-12 00:55 | Emergency (ER) | payer MEDICARE ==
[2024-09-12] MEDS: TOPICAL SKIN ADHESIVE 1 EACH AMP TOPICAL ONE (01:15)
--- NOTE | 2024-09-12 01:32 | ED ---
Head Injury HPI - General Chief complaint: Head Injury Stated complaint: Head laceration Time Seen by Provider: 09/12/24 01:01 Source: patient Mode of arrival: ambulatory - History of Present Illness Initial comments: 74-year-old male presenting with chief complaint of head injury. Patient was in bed and rolled over hitting his head on his nightstand. He has a laceration near the left eyebrow. No loss of consciousness. Patient does take Eliquis. Bleeding is well-controlled at this time. No other injuries. No nausea, vomiting, dizziness, vision or hearing changes, numbness, tingling, weakness, neck pain. - Related Data Home Medications Medication Instructions Recorded Confirmed Multivitamins, Thera [Multivitamin 1 tab PO DAILY 05/10/15 01/09/24 (formulary)] Tamsulosin [Flomax] 0.4 mg PO DAILY 05/10/15 01/08/24 Famotidine 40 mg PO HS PRN 05/22/17 01/08/24 Escitalopram [Lexapro] 10 mg PO DAILY 07/27/18 01/08/24 Aclidinium [place] [Tudorza 1 puff INHALATION RT-Q12H PRN 11/27/19 01/09/24 Pressair] Albuterol Inhaler [Ventolin Hfa 2 puff INHALATION RT-Q6H PRN 11/27/19 01/09/24 Inhaler] Magnesium 50 mg PO DAILY 11/27/19 01/08/24 Cholecalciferol [Vitamin D3 (25 2,000 unit PO DAILY 03/10/20 01/08/24 Mcg = 1000 Iu)] buPROPion XL [Wellbutrin XL] 150 mg PO DAILY 01/08/24 01/08/24 Previous Rx's Medication Instructions Recorded Aspirin 81 mg PO DAILY #30 chew 05/27/17 Atorvastatin [Lipitor] 80 mg PO HS #30 tab 05/27/17 Nitroglycerin Sl Tabs [Nitrostat] 0.4 mg SUBLINGUAL Q5M PRN #25 tab 05/27/17 Apixaban [Eliquis] 5 mg PO BID #90 tab 11/28/19 Allergies/Adverse reactions: Allergies Allergy/AdvReac Type Severity Reaction Status Date / Time No Known Allergies Allergy Verified 01/09/24 12:59 Review of Systems ROS Statement: Those systems with pertinent positive or pertinent negative responses have been documented in the HPI. ROS Other: All systems not noted in ROS Statement are negative. 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; hx chronic bronchitis History of Any Multi-Drug Resistant Organisms: None Reported Past Surgical History: Cardiac Ablation, Heart Catheterization, Heart Catheterization With Stent, Hernia Repair, Joint Replacement, Orthopedic Surgery Additional Past Surgical History / Comment(s): heart stents x2, reverse left shoulder replacement, left shoulder surgery (total 3), arthroscopy left knee, rt ankle ORIF, 05-22-15 TOTAL LT KNEE REPLACEMENT, 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 IN FACE-CHEEKS & EYES (JAN 2018) Past Anesthesia/Blood Transfusion Reactions: No Reported Reaction Additional Past Anesthesia/Blood Transfusion Reaction / Comment(s): DONAVAN STROPHOBIC Date of Last Stent Placement:: 05/2017 Past Psychological History: Anxiety, Depression Smoking Status: Former smoker - Past Family History Mother Family Medical History: Dementia Father Family Medical History: Hyperlipidemia, Myocardial Infarction ([place]) General Exam General appearance: alert, in no apparent distress Expanded Head exam: Present: laceration (3 cm laceration near the left eyebrow) Eye exam: Present: normal appearance, PERRL, EOMI. Absent: periorbital swelling Pupils: Present: normal accommodation Neck exam: Present: normal inspection. Absent: meningismus Respiratory exam: Absent: respiratory distress Cardiovascular Exam: Present: regular rate Neurological exam: Present: alert, oriented X3 Psychiatric exam: Present: normal affect, normal mood Expanded Type of lesion: Present: laceration Course Vital Signs 09/12/24 09/12/24 00:56 03:35 Temperature 97.8 F 98 F Pulse Rate 73 71 Respiratory 18 17 Rate Blood Pressure 171/85 157/82 O2 Sat by Pulse 96 94 L Oximetry Procedures - Laceration Laceration #1 Consent Obtained: verbal consent Indication: laceration Site: face Size (cm): 3 Description: linear Depth: simple, single layer Pre-repair: wound explored Type of Sutures: other (Dermabond) Patient Tolerated Procedure: well Medical Decision Making - Medical Decision Making Was pt. sent in by a medical professional or institution (BEKAH Vyas, MOLECULAR GENETICIST, urgent care, hospital, or fdc...) When possible be specific @ -No Did you speak to anyone other than the patient for history (EMS, parent, family, police, friend...)? What history was obtained from this source @ -No Did you review nursing and triage notes (agree or disagree)? Why? @ -I reviewed and agree with nursing and triage notes Were old charts reviewed (outside hosp., previous admission, EMS record, old EKG, old radiological studies, urgent care reports/EKG's, fdc records)? Report findings @ -No old charts were reviewed Differential Diagnosis (chest pain, altered mental status, abdominal pain women, abdominal pain men, vaginal bleeding, weakness, fever, dyspnea, syncope, headache, dizziness, GI bleed, back pain, seizure, CVA, palpatations, mental health, musculoskeletal)? @ -Differential includes uncomplicated head injury, concussion, fracture, hemorrhage, not an all-inclusive list EKG interpreted by me (3pts min.). @ -As above X-rays interpreted by me (1pt min.). @ -None done CT interpreted by me (1pt min.). @ -CT shows no acute intracranial process U/S interpreted by me (1pt. min.). @ -None done What testing was considered but not performed or refused? (CT, X-rays, U/S, labs)? Why? @ -None What meds were considered but not given or refused? Why? @ -None Did you discuss the management of the patient with other professionals (professionals i.e. BEKAH Vyas, MOLECULAR GENETICIST, lab, RT, psych nurse, social science analyst, armed custom protection officer, teacher, photographic intelligence officer, top case assembler)? Give summary @ -No Was smoking cessation discussed for >3mins.? @ -No Was critical care preformed (if so, how long)? @ -No Were there social determinants of health that impacted care today? How? (Homelessness, low income, unemployed, alcoholism, drug addiction, transportat ion, low edu. Level, literacy, decrease access to med. care, alf, rehab)? @ -No Was there de-escalation of care discussed even if they declined (Discuss DNR or withdrawal of care, Hospice)? DNR status @ -No What co-morbidities impacted this encounter? (DM, HTN, Smoking, COPD, CAD, Cancer, CVA, ARF, Chemo, Hep., AIDS, mental health diagnosis, sleep apnea, morbid obesity)? @ -None Was patient admitted / discharged? Hospital course, mention meds given and route, prescriptions, significant lab abnormalities, going to OR and other pertinent info. @ -74-year-old male presenting with chief complaint of head injury. He rolled over in bed and hit his head on his nightstand. He has a laceration to the left eyebrow. Patient is on blood thinners and code coag was called. CT negative for acute intracranial process. Laceration repaired using Dermabond. Patient educated on today's findings. Follow-up with PCP. Report back to ER with any new or worsening symptoms. Discussed return parameters and answered all questions. Patient conveyed verbal understanding and agreed to the plan. I discussed this case in detail with my attending Dr. Tapia Undiagnosed new problem with uncertain prognosis? @ -No Drug Therapy requiring intensive monitoring for toxicity (Heparin, Nitro, Insulin, Cardizem)? @ -No Were any procedures done? @ -Laceration repair Diagnosis/symptom? @ -Head injury, facial laceration Acute, or Chronic, or Acute on Chronic? @ -Acute Uncomplicated (without systemic symptoms) or Complicated (systemic symptoms)? @ -Uncomplicated Side effects of treatment? @ -No Exacerbation, Progression, or Severe Exacerbation? @ -No Poses a threat to life or bodily function? How? (Chest pain, [place], [place], pneumonia, PE, COPD, DKA, ARF, appy, cholecystitis, CVA, Diverticulitis, Homicidal, Suicidal, threat to staff... and all critical care pts) @ -Unlikely Disposition Clinical Impression: Head injury, Facial laceration Disposition: HOME SELF-CARE Condition: Good Instructions (If sedation given, give patient instructions): Head Injury (ED), Facial Laceration (ED) Additional Instructions: Follow-up with PCP. Report back to ER with any new or worsening symptoms. Is patient prescribed a controlled substance at d/c from ED?: No Referrals: Paulino Kamara MD [Primary Care Provider] - 1-2 days Time of Disposition: 03:26
--- NOTE | 2024-09-12 03:23 | CT ---
EXAM: CT Head Without Intravenous Contrast CLINICAL HISTORY: ITS.REASON CT Reason: head injury TECHNIQUE: Axial computed tomography images of the head/brain without intravenous contrast. CTDI is 49.1 mGy and DLP is 1274.4 mGy-cm. This CT exam was performed using one or more of the following dose reduction techniques: automated exposure control, adjustment of the mA and/or kV according to patient size, and/or use of iterative reconstruction technique. COMPARISON: Prior head CT from February 20, 2018. FINDINGS: This study is limited secondary to motion artifact. Brain: Unremarkable. No hemorrhage. No significant white matter disease. No edema. Ventricles: Unremarkable. No ventriculomegaly. Bones/joints: Status post ORIF of the right maxilla. No acute fracture. Soft tissues: Mild soft tissue swelling over the left forehead. Sinuses: Unremarkable as visualized. No acute sinusitis. Mastoid air cells: Unremarkable as visualized. No mastoid effusion. IMPRESSION: No evidence of acute intracranial pathology.
[2024-09-12 03:42] VITALS: BP 157/82; PULSE 71; RESP 17; TEMP 98
== END 2024-09-12 03:42 | disposition home or self-care (01) ==
LOC: EC 00:55
DX: S01.112A Laceration without foreign body of left eyelid and periocular area, initial encounter (principal); S09.90XA Unspecified injury of head, initial encounter; Z87.891 Personal history of nicotine dependence; W22.03XA Walked into furniture, initial encounter
CPT/HCPCS: 12013; 70450; 99283

== ENCOUNTER 2024-10-25 14:14 | Emergency (ER) | payer MEDICARE ==
[2024-10-25 14:18] VITALS: RESP 20
[2024-10-25] MEDS: HYDROcodone/APAP 5-325MG 1 EACH TAB PO STA (14:41)
--- NOTE | 2024-10-25 15:08 | XR ---
EXAMINATION TYPE: XR Hip LT and AP Pelvis DATE OF EXAM: 10/25/2024 3:02 PM COMPARISON: None. CLINICAL INDICATION: Male, 74 years old with history of fall, pain, TECHNIQUE: A single AP view of the pelvis is obtained. Two views of the left hip are obtained. FINDINGS: There is no acute fracture/dislocation evident in the pelvis. The hip and sacroiliac joints appear s ymmetric and unremarkable. The overlying soft tissue appears unremarkable.Two views of left hip show no acute fracture or dislocation. No focal lytic or sclerotic lesion seen in the proximal left femu r. The overlying soft tissue is unremarkable. IMPRESSION: There is no acute fracture or dislocation in the pelvis or left hip. [facility], , 10/25/2024 3:06 PM
--- NOTE | 2024-10-25 15:10 | XR ---
EXAMINATION TYPE: XR foot complete RT DATE OF EXAM: 10/25/2024 3:03 PM COMPARISON: None. CLINICAL INDICATION: Male, 74 years old with history of fall, pain, pain TECHNIQUE: XR foot complete RT XX views were obtained. FINDINGS: There is no acute fracture/dislocation evident. The joint spaces appear within normal limits. The o verlying soft tissue appears unremarkable. IMPRESSION: No acute fracture or dislocation. [facility], , 10/25/2024 3:08 PM
--- NOTE | 2024-10-25 15:11 | XR ---
EXAMINATION TYPE: XR ankle complete RT DATE OF EXAM: 10/25/2024 3:03 PM COMPARISON: None. CLINICAL INDICATION: Male, 74 years old with history of fall, pain, TECHNIQUE: XR ankle complete RT, views submitted for evaluation. FINDINGS: There is no evidence for fracture or dislocation. The joint spaces appear within normal limits. The overlying soft tissue appears unremarkable. Ankle mortise is intact. Lateral soft tissue swelling not ed. IMPRESSION: 1. No evidence for acute fracture. [facility], , 10/25/2024 3:09 PM
--- NOTE | 2024-10-25 15:14 | XR ---
EXAMINATION TYPE: XR tibia fibula RT DATE OF EXAM: 10/25/2024 CLINICAL HISTORY: pain TECHNIQUE: AP and lateral images of the right tibia and fibula are obtained. COMPARISON: None. FINDINGS: There is no acute fracture/dislocation evident. The joint spaces appear within normal santos its. The overlying soft tissue appears unremarkable. IMPRESSION: There is no acute fracture or dislocation seen. ICD 10 NO FRACTURE, INITIAL EVALUATION [facility], , 10/25/2024 3:12 PM
--- NOTE | 2024-10-25 15:52 | ED ---
General Adult HPI - General Chief complaint: Fall Stated complaint: R foot injury Time Seen by Provider: 10/25/24 14:25 Source: patient, RN notes reviewed, old records reviewed Mode of arrival: ambulatory Limitations: no limitations - History of Present Illness Initial comments: 74-year-old male who presents emergency department after a fall. Fell off a ladder from approximately 4 feet high. He is on blood thinners but did not hit his head. No loss of consciousness. States he landed with his right foot on a tree trunk and thinks he may have injured his ankle and then fell the other way and landed on his left buttock on another tree root. Did not hit his head. No loss conscious. No other injuries. This occurred 3 hours ago. He has been using crutches since the event and presents over concern for significant right ankle pain. Denies any back pain, chest pain, shortness of breath. Has no other acute complaints. Presents for further evaluation at this time. Drove himself here. - Related Data Home Medications Medication Instructions Recorded Confirmed Multivitamins, Thera [Multivitamin 1 tab PO DAILY 05/10/15 10/25/24 (formulary)] Tamsulosin [Flomax] 0.4 mg PO HS 05/10/15 10/25/24 Albuterol Inhaler [Ventolin Hfa 2 puff INHALATION RT-Q6H PRN 11/27/19 10/25/24 Inhaler] Magnesium 100 mg PO HS 11/27/19 10/25/24 buPROPion XL [Wellbutrin XL] 150 mg PO DAILY 01/08/24 10/25/24 Cholecalciferol (Vitamin D3) 100 mcg PO DAILY 10/25/24 10/25/24 [Vitamin D3 (50 Mcg = 2000 Iu)] Escitalopram [Lexapro] 20 mg PO HS 10/25/24 10/25/24 Midodrine HCl 2.5 mg PO TID PRN 10/25/24 10/25/24 Omeprazole 20 mg PO HS 10/25/24 10/25/24 Previous Rx's Medication Instructions Recorded Aspirin 81 mg PO DAILY #30 chew 05/27/17 Atorvastatin [Lipitor] 80 mg PO HS #30 tab 05/27/17 Nitroglycerin Sl Tabs [Nitrostat] 0.4 mg SUBLINGUAL Q5M PRN #25 tab 05/27/17 Apixaban [Eliquis] 5 mg PO BID #90 tab 11/28/19 Allergies Allergy/AdvReac Type Severity Reaction Status Date / Time No Known Allergies Allergy Verified 10/25/24 16:00 Review of Systems ROS Statement: Those systems with pertinent positive or pertinent negative responses have been documented in the HPI. Review of Systems: CONST: Denies fever EYES: Denies blurry vision ENT: Denies nasal congestion C/V: Denies Chest pain RESP: Denies shortness of breath GI: Denies abdominal pain : Denies dysuria SKIN: Denies rash. MSK: Endorses right ankle pain, endorses left buttock pain NEURO: Denies headache ROS Other: All systems not noted in ROS Statement are negative. 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; hx chronic bronchitis History of Any Multi-Drug Resistant Organisms: None Reported Past Surgical History: Cardiac Ablation, Heart Catheterization, Heart Catheterization With Stent, Hernia Repair, Joint Replacement, Orthopedic Surgery Additional Past Surgical History / Comment(s): heart stents x2, reverse left shoulder replacement, left shoulder surgery (total 3), arthroscopy left knee, rt ankle ORIF, 05-22-15 TOTAL LT KNEE REPLACEMENT, 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 IN FACE-CHEEKS & EYES (JAN 2018) Past Anesthesia/Blood Transfusion Reactions: No Reported Reaction Additional Past Anesthesia/Blood Transfusion Reaction / Comment(s): CLAUSTROPHOBIC Date of Last Stent Placement:: 05/2017 Past Psychological History: Anxiety, Depression Smoking Status: Former smoker Past Alcohol Use History: None Reported Past Drug Use History: None Reported - Past Family History Mother Family Medical History: Dementia Father Family Medical History: Hyperlipidemia, Myocardial Infarction ([place]) General Exam - General Exam Comments Initial Comments: General: Appears in no acute distress. HEAD: Normal with no signs of head trauma. Negative Perez sign. Negative raccoon eyes. EYES: PERRLA, EOMI, conjunctiva normal, no discharge. Pupils are 2 to 3 mm and equal bilaterally. ENT: Hearing grossly intact, normal oropharynx. RESPIRATORY: Clear breath sounds bilaterally. No wheezes, rales, or rhonchi. C/V: Regular rate and rhythm. S1 and S2 auscultated, no edema, peripheral pulses 2+ and intact throughout ABD: Abd is soft, nontender, nondistended EXT: Reduced range of motion of the right ankle secondary to pain. Swelling but no obvious deformity. Tenderness to palpation over the lateral and medial aspect of the ankle. No significant tenderness of the foot. Right knee and right hip exam within normal limits. Patient has normal range of motion of the left hip. Tenderness to palpation over the left buttock. No obvious injury. No midline cervical, thoracic, lumbar spine tenderness to palpation. Pelvis is stable. SKIN: No rashes or lesions observed on exposed skin. NEURO: Alert and oriented x 4. Cranial nerves II-XII intact. No focal sensory or strength deficits. GCS of 15. No focal deficits. Limitations: no limitations Course Vital Signs 10/25/24 10/25/24 14:16 16:07 Temperature 98.1 F 98.0 F Pulse Rate 93 86 Respiratory 20 20 Rate Blood Pressure 131/73 126/76 O2 Sat by Pulse 96 99 Oximetry Medical Decision Making - Medical Decision Making Was pt. sent in by a medical professional or institution (, PA, SHEAR OPERATOR HELPER, urgent care, hospital, or retirement...) When possible be specific @ -No Did you speak to anyone other than the patient for history (EMS, parent, family, police, friend...)? What history was obtained from this source @ -No Did you review nursing and triage notes (agree or disagree)? Why? @ -I reviewed and agree with nursing and triage notes Were old charts reviewed (outside hosp., previous admission, EMS record, old EKG, old radiological studies, urgent care reports/EKG's, retirement records)? Report findings @ -No old charts were reviewed Differential Diagnosis (chest pain, altered mental status, abdominal pain women, abdominal pain men, vaginal bleeding, weakness, fever, dyspnea, syncope, headache, dizziness, GI bleed, back pain, seizure, CVA, palpatations, mental health, musculoskeletal)? @ -Right ankle sprain, right ankle fracture, left hip fracture. This list is not all inclusive. EKG interpreted by me (3pts min.). @ -None done X-rays interpreted by me (1pt min.). @ -Right ankle, foot, tib-fib x-rays negative for any obvious acute traumatic injury. Left hip, pelvis x-ray negative for any obvious acute traumatic injury. CT interpreted by me (1pt min.). @ -None done U/S interpreted by me (1pt. min.). @ -None done What testing was considered but not performed or refused? (CT, X-rays, U/S, labs)? Why? @ -None What meds were considered but not given or refused? Why? @ -None Did you discuss the management of the patient with other professionals (professionals i.e. , PA, SHEAR OPERATOR HELPER, lab, RT, psych nurse, social security specialist, strand and binder controller, teacher, army officer, caseworker)? Give summary @ -No Was smoking cessation discussed for >3mins.? @ -No Was critical care preformed (if so, how long)? @ -No Were there social determinants of health that impacted care today? How? (Homelessness, low income, unemployed, alcoholism, drug addiction, transportation, low edu. Level, literacy, decrease access to med. care, [facility], rehab)? @ -No Was there de-escalation of care discussed even if they declined (Discuss DNR or withdrawal of care, Hospice)? DNR status @ -No What co-morbidities impacted this encounter? (DM, HTN, Smoking, COPD, CAD, Cancer, CVA, ARF, Chemo, Hep., AIDS, mental health diagnosis, sleep apnea, morbid obesity)? @ -None Was patient admitted / discharged? Hospital course, mention meds given and route, prescriptions, significant lab abnormalities, going to OR and other pertinent info. @ -Based on patient's presentation physical exam, presents emergency department complaining of fall. Does not meet trauma activation criteria. Does not meet code coag criteria. We will obtain x-rays of the right foot, ankle, tib-fib as well as left hip and pelvis x-rays. Patient given a [place]. Vital signs within acceptable limits. GCS of 15. Imaging returned negative for any obvious acute traumatic injury. I update the patient. He will be given an ankle splint. He already has crutches. Discussed that he likely has a sprain. Recommend follow-up with orthopedic surgery of symptoms persist and he can always return to the ER if any worsening symptoms. Patient was in agreement this plan. Patient given a starter pack of Tylenol 3 for home. I instructed the patient to follow up with their PCP in the next 1-3 days. I explained that the patient should return to the emergency department if they experience any worsening symptoms. Strict return precautions were discussed with the patient. The patient expressed understanding of these instructions. I answered all questions that the patient had. The patient was discharged home in good condition with their prescriptions and follow up information. Undiagnosed new problem with uncertain prognosis? @ -No Drug Therapy requiring intensive monitoring for toxicity (Heparin, Nitro, Insulin, Cardizem)? @ -No Were any procedures done? @ -No Diagnosis/symptom? @ -Fall, right ankle sprain Acute, or Chronic, or Acute on Chronic? @ -Acute Uncomplicated (without systemic symptoms) or Complicated (systemic symptoms)? @ -Uncomplicated Side effects of treatment? @ -No Exacerbation, Progression, or Severe Exacerbation? @ -No Poses a threat to life or bodily function? How? (Chest pain, [place], [place], pneumonia, PE, COPD, DKA, ARF, appy, cholecystitis, CVA, Diverticulitis, Homicidal, Suicidal, threat to staff... and all critical care pts) @ -Unlikely at this time Disposition Clinical Impression: Right ankle sprain, Fall Disposition: HOME SELF-CARE Condition: Good Instructions (If sedation given, give patient instructions): Ankle Sprain (ED), Crutch Instructions (ED), Fall Prevention for Older Adults (ED) Is patient prescribed a controlled substance at d/c from ED?: No Referrals: Paulino Kamara MD [Primary Care Provider] - 1-2 days Dio Mitchell DO [Doctor of Osteopathic Medicine] - 1-2 days Time of Disposition: 15:52
[2024-10-25] MEDS: ACET/COD 300 MG/30 MG STARTER PACK TAB BTL PO STA (15:58)
[2024-10-25 16:09] VITALS: BP 126/76; PULSE 86; TEMP 98
== END 2024-10-25 16:07 | disposition home or self-care (01) ==
LOC: EC 14:14
DX: S93.401A Sprain of unspecified ligament of right ankle, initial encounter (principal); Z87.891 Personal history of nicotine dependence; W11.XXXA Fall on and from ladder, initial encounter
CPT/HCPCS: 73502; 73590; 73610; 73630; 99283; 29515; L4350